=== PATIENT | female | born 1985 | race Caucasian/White ===

== ENCOUNTER → 2017-08-16 | Outpatient (CLI) | payer OTHER ==
--- NOTE | 2017-08-16 17:49 | MR ---
EXAMINATION TYPE: MR cervical spine wo con DATE OF EXAM: 08/16/2017 COMPARISON: NONE HISTORY: headaches, Neck pain, for a couple of months TECHNIQUE: Multiplanar, multisequence images of the cervical spine were acquired. C2-C3: No evidence for degenerative disc disease. No disc bulge/herniation or protrusion. No Canal stenosis. Foramina are patent bilaterally. C3-C4: There is moderate degenerative disc disease. There is broad-based central and right paracentra l disc bulging or small protrusion. Uncovertebral joint hypertrophy bilaterally greater on the right with mild bilateral foraminal encroachment but no canal stenosis. C4-C5: Moderate degenerative disc disease with posterior spondylosis and uncovertebral joint hypertro phy. Neural foramina remain patent. No focal herniation. C5-C6: Large central disc herniation resulting in anterior compression the spinal cord. Uncovertebral joint hypertrophy and facet arthropathy contribute to mild bilateral foraminal encroachment greater on the left. C6-C7: Degenerative disc disease with broad-based left paracentral disc herniation which abuts the an terior margin the spinal cord and results in mild left-sided foraminal encroachment. C7-T1: No evidence for degenerative disc disease. No disc bulge/herniation or protrusion. No Canal stenosis. Foramina are patent bilaterally. At T1-T2 there severe degenerative disc disease and sagittal disc bulging or protrusion to the left w hich is not included on the axial images. Cervical segments are intact. There is normal alignment. Cervical spinal cord is of normal signal. Craniovertebral junction relationships are within normal limits. IMPRESSION: 1. There is a central disc herniation C5-C6 with anterior spinal cord compression. 2. Multilevel degenerative disc disease and cervical spondylosis result in multilevel foraminal encro achment. 3. At C3-C4 there is broad-based central and right paracentral disc bulging or small protrusion. No C anal stenosis. Bilateral foraminal encroachment greater on the right. 4. At C6-C7 there is a broad-based central and left paracentral disc herniation which abuts the anter ior margin of the spinal cord without displacement. Significant compression of the thecal sac. 5. The T1-T2 level is only included on the sagittal images and demonstrates a sagittal disc bulge or protrusion to the left. Axial images do not include this region of interest. Consider follow-up [facility] spine MRI. A Yellow message has been communicated to Merissa Barahona MD via the [email or web address] [facility] system on 08/16/2017 5:44 PM, Message ID [id number].
== END | disposition home or self-care (01) ==
LOC: RADMRIMAIN 17:03
PROVIDERS: ATTEND Psychiatry & Neurology Neurology
DX: M50.21 Other cervical disc displacement, high cervical region (principal); M50.31 Other cervical disc degeneration, high cervical region; M47.812 Spondylosis without myelopathy or radiculopathy, cervical region; G95.20 Unspecified cord compression; Z88.0 Allergy status to penicillin; Z88.1 Allergy status to other antibiotic agents; Z88.5 Allergy status to narcotic agent; Z88.2 Allergy status to sulfonamides
CPT/HCPCS: 72141

== ENCOUNTER → 2017-08-25 | Outpatient (CLI) | payer OTHER ==
--- NOTE | 2017-08-25 14:07 | MR ---
EXAMINATION TYPE: MR thoracic spine wo con DATE OF EXAM: 08/25/2017 COMPARISON: NONE HISTORY: Thoracic DDD / Thoracic pain per order. TECHNIQUE: Multiplanar, multisequence imaging of thoracic spine is performed without contrast FINDINGS: Spinal cord shows normal course, caliber, and signal as it courses the thoracic spine. Vertebral bod y heights and alignment are satisfactory. Disc space heights are fairly well-maintained. There are m ultilevel posterior disc herniation seen mildly effacing anterior thecal sac at T4-T5, T6-T7, T7-T8 l evels on sagittal images. The bone marrow signal intensity is maintained. No significant spurring is seen. Review of the axial images shows confirms left paracentral disc protrusion effacing anterolateral the melissa sac on axial image 9 series 601 at T4-T5 level. Bilateral neural foramina are patent. Axial images at T5-T6 level shows small central disc protrusion mildly effacing anterior thecal sac o n axial image 6, bilateral neural foramina are patent. Axial images at T6-T7 level show slightly more prominent left paracentral disc protrusion effacing an terior thecal sac, up to ventral surface of spinal cord on axial image 2. Bilateral neural foramina r emain patent. Axial images at T7-T8 level show right paracentral disc protrusion effacing anterolateral thecal sac on axial image 16, bilateral neural foramina are patent. Spinal cord is slightly flattened at this le leonel along right anterior aspect. Remainder thoracic levels are felt within normal limits. Visualized thorax and upper abdomen show no suspicious abnormality. IMPRESSION: Multilevel disc herniations in the upper to midthoracic spine with most prominent disc he rniations noted T6-T7 and T7-T8 levels.
== END | disposition home or self-care (01) ==
LOC: RADMRIMAIN 12:12
PROVIDERS: ATTEND Psychiatry & Neurology Neurology
DX: M51.24 Other intervertebral disc displacement, thoracic region (principal); Z88.0 Allergy status to penicillin; Z88.5 Allergy status to narcotic agent; Z88.1 Allergy status to other antibiotic agents
CPT/HCPCS: 72146

== ENCOUNTER → 2019-02-27 | Outpatient (CLI) | payer BC, OTHER ==
[2019-02-27 15:18] LABS: HCT 37.7 % (34.0-46.0); HGB 12.7 gm/dL (11.4-16.0); MCH 30.8 pg (25.0-35.0); MCHC 33.6 g/dL (31.0-37.0); MCV 91.7 fL (80.0-100.0); Mean Platelet Volume 8.3; Platelet Count 231 k/uL (150-450); RBC 4.11 m/uL (3.80-5.40); RDW 12.8 % (11.5-15.5); WBC 5.5 k/uL (3.8-10.6)
[2019-02-27 15:24] LABS: African American GFR (CKD) >90 (>60 ml/min/1.73 sqM); Anion Gap 10 mmol/L; Blood Urea Nitrogen 13 mg/dL (7-17); Carbon Dioxide 22 mmol/L (22-30); Chloride 106 mmol/L (98-107); Glucose 90 mg/dL (74-99); Potassium 4.1 mmol/L (3.5-5.1); Sodium 138 mmol/L (137-145)
== END | disposition home or self-care (01) ==
LOC: LABPAT 14:19
PROVIDERS: ATTEND Internal Medicine Clinical Cardiac Electrophysiology
DX: Z01.812 Encounter for preprocedural laboratory examination (principal); I49.3 Ventricular premature depolarization; I49.9 Cardiac arrhythmia, unspecified
CPT/HCPCS: 36415; 80051; 82565; 82947; 84520; 85027

== ENCOUNTER 2019-03-14 10:07 | Inpatient (IN) | payer BC, OTHER ==
[~2019-03-14 10:07] MED LIST: LACTATED RINGERS 1,000 ML IV SCH
[2019-03-14] MEDS ORDERED: SODIUM CHLORIDE 0.9% 500 ML 500 ML IV ONE (10:27)
[2019-03-14] MEDS ORDERED: FAMOTIDINE 20 MG/2 ML VIAL ONE (11:03)
[2019-03-14] MEDS ORDERED: MIDAZOLAM (PF) 2 MG/2 ML VIAL IVP ONE (11:31)
[2019-03-14] MEDS ORDERED: LOPERAMIDE 2 MG CAP PO STA (12:24)
[2019-03-14] MEDS ORDERED: LIDOCAINE 1% INJ 10MG/ML (20 ML MDV) ONE ×3 (12:54→18:06)
[2019-03-14] MEDS ORDERED: HEPARIN SODIUM,PORCINE 10,000 UNIT/ML 1 ML VIAL ONE (13:01)
[2019-03-14] MEDS ORDERED: fentaNYL (PF) 50 MCG/ML 2 ML AMP ONE (13:01)
[2019-03-14] MEDS ORDERED: MIDAZOLAM 2 MG/2 ML VIAL ONE (13:01)
[2019-03-14] MEDS ORDERED: PROPOFOL 10 MG/ML 20 ML VIAL IV ONE (13:01)
[2019-03-14] MEDS ORDERED: SODIUM CHLORIDE 0.9% 1,000 ML IV ONE (13:01)
[2019-03-14] MEDS ORDERED: ISOPROTERENOL 250 MCG/1.25 ML SYR IV ONE (13:01)
--- NOTE | 2019-03-14 13:40 | P.HPCAR ---
History of Present Illness This is Nova Aguilera PA-C dictating H&P on this patient The patient was interviewed and examined by me as well as by Dr. Perdomo Case discussed with Dr. Perdomo and he agrees with the plan of care IMPRESSION / ASSESSMENT: Frequent symptomatic PVCs Hypothyroidism, most recent TSH within normal limits PLAN: Proceed with EP study and possible PVC ablation HPI Patient is a 33-year-old female with a past medical history of hypothyroidism who presents for evaluation and management of frequent PVCs. Patient has had increasing symptomatic PVCs. Most recent Holter monitor showed 16% PVC burden. Dr. Rangel her primary log sorter tried increasing her Cardizem from 180 mg to 240 mg daily but she was unable to tolerate this due to bradycardia. She continues to have symptoms of palpitations and chest discomfort. Patient seen and examined resting comfortably in bed. States she is anxious for her procedure. She has had mild diarrhea this morning which she attributes to her anxiety about the procedure. She is still getting palpitations although she feels they've been less frequent the last few days. Denies chest pain or shortness of breath currently. Denies orthopnea, PND, recent infections, fevers, chills. She is ready to proceed with the procedure. ROS: No fevers, chills or rigors, no cough, phlegm or expectoration, no nausea, vomiting, positive for diarrhea no hematuria, dysuria, no musculoskeletal complaints, no strokes or seizures, no skin lesions. EXAMINATION: Temperature 98.3F, pulse 82, respirations 16, blood pressure 135/81, oxygen saturation 97% on room air Patient seen and examined lying comfortably in bed, in no acute distress Lungs clear to auscultation bilaterally, no wheezing, rhonchi or crackles Heart is regular, normal S1 and S2, no murmurs appreciated No elevated JVD noted No lower extremity edema Abdomen soft REVIEW OF LABS, ECG & MEDICAL DATA Most recent echo showed EF 55-60% Most recent labs reviewed, WBC 5.5, hemoglobin 12.7, platelets 231, potassium 4.1, BUN 13, creatinine 0.8 to, magnesium 1.7, TSH 1.98 Physical Exam Vitals: Vital Signs Temp Pulse Resp BP Pulse Ox 03/14/19 11:29 98.3 F 82 16 135/81 97 Intake and Output 03/13/19 03/14/19 03/14/19 22:59 06:59 14:59 Intake Total 20 Balance 20 Intake: IV 20 Past Medical History Past Medical History: Asthma, Chest Pain / Angina, Musculoskeletal Disorder, Thyroid Disorder Additional Past Medical History / Comment(s): Palpitations, recurrent UTIs, hx gastric ulcers, anemia, DDD, chronic cervical and low back pain, hx head inj ury/concussion with sports, migraines, hypothyroid. Tachycardia ongoing for 6 years. History of Any Multi-Drug Resistant Organisms: None Reported Past Surgical History: Section, Cholecystectomy, Heart Catheterization, Orthopedic Surgery, Tonsillectomy, Tubal Ligation Additional Past Surgical History / Comment(s): 2013 cardiac cath-normal, 08/24/18 tubal ligation, L foot tendon/bunion surgery - later removal screws. Egd. Past Anesthesia/Blood Transfusion Reactions: No Reported Reaction, Motion Sickness Smoking Status: Former smoker - Past Family History Father History Unknown: Yes Mother Family Medical History: Hypertension Physical Examination Vital Signs Temp Pulse Resp BP Pulse Ox 03/14/19 11:29 98.3 F 82 16 135/81 97 Intake and Output 03/13/19 03/14/19 03/14/19 22:59 06:59 14:59 Intake Total 20 Balance 20 Intake: IV 20 Results Current Medications Generic Name Dose Route Start Last Admin Trade Name Freq PRN Reason Stop Dose Admin Lactated Ringer's 1,000 mls @ 20 mls/hr 03/14/19 07:00 Lactated Ringers IV .Q24H LUCILA Sodium Chloride 1,000 mls @ 20 mls/hr 03/14/19 07:00 Saline 0.9% IV .Q24H LUCILA Intake and Output 03/13/19 03/14/19 03/14/19 22:59 06:59 14:59 Intake Total 20 Balance 20 Intake: IV 20
[2019-03-14] MEDS: LIDOCAINE 1% INJ 10MG/ML (20 ML MDV) SQ ONE ×2 (13:57→15:22)
[2019-03-14] MEDS ORDERED: HEPARIN SOD,PORK IN 0.45% NACL 25,000 UNIT in 0.45% NACL 1 250ML.BAG IV ONE (15:20)
[2019-03-14] MEDS ORDERED: HEPARIN SODIUM (1,000 UNIT/ML) 1,000 UNIT in SODIUM CHLORIDE 0.9% 1,000 ML IRRIGATION ONE (15:27)
[2019-03-14] MEDS ORDERED: LACTATED RINGERS 1,000 ML IV ONE (16:30)
[2019-03-14] MEDS ORDERED: LOPERAMIDE 2 MG CAP PO PRN (17:56)
[2019-03-14] MEDS ORDERED: LIDOCAINE 1% INJ 10MG/ML (20 ML MDV) SQ ONE (17:58)
[2019-03-14] MEDS ORDERED: IOPAMIDOL-370 50ML BTL INJ ONE (18:07)
--- NOTE | 2019-03-14 18:20 | P.PRLE ---
RE: Candice Hall Dear José Luis Hall underwent a detailed EP study and we were able to induce PVCs only during the washout phase following short boluses of Isuprel. These PVCs are mapped to the aortic root. Both pace mapping and activation mapping was performed and they were mapped to the left coronary cusp, closest to the commissure between the right coronary cusp and the left coronary cusp. Successful ablation was performed. However it is quite likely she may still have a few PVCs since this is an epicardial location. I have asked her to continue aspirin for at least a month more. But stop Isosorbide mononitrate Thank you for entrusting me with the care of the patient Warm regards Sincerely El Perdomo
[2019-03-14] MEDS ORDERED: ACETAMINOPHEN IV (For NPO) 1,000 MG in EMPTY BAG 1 BAG IVPB ONE (18:30)
[2019-03-14] MEDS: SYMBICORT 160-4.5 MCG INHALER INHALATION SCH (19:22)
[2019-03-14] MEDS: SODIUM CHLORIDE 0.9% 1,000 ML IV SCH (19:38)
[2019-03-14 20:08] VITALS: BMI 34.6
[2019-03-14] MEDS: SERTRALINE 100 MG TAB PO SCH (20:24)
[2019-03-14] MEDS: DILTIAZEM CD 180 MG CAP.ER.24H PO SCH (20:24)
[2019-03-14] MEDS: clonazePAM 1 MG TAB PO SCH (20:24)
[2019-03-14] MEDS: LEVOTHYROXINE 125 MCG TAB PO SCH (20:24)
[2019-03-15] MEDS: SODIUM CHLORIDE 0.9% 1,000 ML IV SCH (05:08)
[2019-03-15 06:38] LABS: HCT 34.9 % (34.0-46.0); HGB 11.9 gm/dL (11.4-16.0); MCH 31.9 pg (25.0-35.0); MCHC 34.1 g/dL (31.0-37.0); MCV 93.4 fL (80.0-100.0); Mean Platelet Volume 8.5; Platelet Count 202 k/uL (150-450); RBC 3.73 m/uL (3.80-5.40); RDW 14.4 % (11.5-15.5); WBC 6.4 k/uL (3.8-10.6)
[2019-03-15] MEDS: clonazePAM 1 MG TAB PO SCH ×2 (07:47→21:18)
[2019-03-15] MEDS: SYMBICORT 160-4.5 MCG INHALER INHALATION SCH ×2 (07:53→19:49)
[2019-03-15] MEDS: buPROPion XL 300 MG TAB.ER.24H PO SCH (08:04)
--- NOTE | 2019-03-15 08:26 | P.DS ---
Providers Attending physician: El Perdomo Primary care physician: [facility] Course: Patient is doing well from a cardiac standpoint. She has no chest discomfort but she does complain of dizziness. The dizziness is in the right eye specifically when she looks downwards. This started a few hours back. She also has a bit of a headache all over the head. She does have a history of infrequent migraines. Yesterday she underwent ablation of frequent symptomatic PVCs. The PVC focus was in the left coronary cusp of the aortic root close to the commissure between the RCC and the LCC. Short RF ablations were performed with elimination of the clinical PVC, each lasting for up to 20 seconds for a maximum of 10-20 lopez She is fairly awake through the procedure. No acute complications noted An Angio-Seal was placed on the high femoral arterial access. Today she has mild discomfort in the right groin no hematoma Heart sounds are normal no murmurs or gallops no rub Rhythm is regular Twelve-lead ECG is completely normal this morning No JVD Pupils are normal Extraocular movements are complete bilaterally Normal pupil reaction to light equally bilaterally Cranial nerve examination is normal Cerebellar examination is normal She is not orthostatic Afebrile 98.1F pulse rate in the 70s, normal respirations, blood pressure 120/71 mmHg I stood her up and she felt a little dizzy all over and now is sitting in a chair comfortably eating breakfast Impression Frequent symptomatic PVCs, epicardial Earliest focus in the left coronary cusp close to the commissure between the RCC and LCC Successful ablation performed with termination of PVCs almost instantly She does have other PVCs but of different morphology Overnight she has not had any for the PVCs She has normal LV function on echo Plan Continue aspirin plan continue diltiazem MRI of the brain Reevaluation thereafter We did try to contact the covering neurologist the nurse was unable to get through I tried to call Dr. Rice's office as Dr. Hernández office. I left a message for Dr. Hernández If her MRI is normal of discharge home on current medications and arrange for an early follow-up next week Plan - Discharge Summary Discharge Rx Participant: Yes New Discharge Prescriptions: Discontinued RX: Isosorbide Mononitrate [Imdur] 15 mg PO DAILY No Action RX: Sertraline HCl [Zoloft] 200 mg PO HS RX: Levothyroxine Sodium [Synthroid] 125 mcg PO HS RX: clonazePAM [KlonoPIN] 1 mg PO BID RX: buPROPion XL [Wellbutrin XL] 300 mg PO DAILY RX: Budesonide-Formot 160-4.5 Mcg [Symbicort 160-4.5 Mcg Inhaler] 2 puff INHALATION RT-BID Diltiazem HCl [Diltiazem 24Hr ER] 180 mg PO HS Multivitamins, Thera [Multivitamin (formulary)] 1 tab PO DAILY Aspirin [Adult Low Dose Aspirin EC] 81 mg PO DAILY Loperamide HCl [Imodium A-D] 4 mg PO BID PRN PRN Reason: Diarrhea Discharge Medication List RX: Levothyroxine Sodium [Synthroid] 125 mcg PO HS 05/10/14 [History] RX: Sertraline HCl [Zoloft] 200 mg PO HS 05/10/14 [History] RX: clonazePAM [KlonoPIN] 1 mg PO BID 05/10/14 [History] Diltiazem HCl [Diltiazem 24Hr ER] 180 mg PO HS 09/19/18 [History] RX: Budesonide-Formot 160-4.5 Mcg [Symbicort 160-4.5 Mcg Inhaler] 2 puff INHALATION RT-BID 09/19/18 [History] RX: buPROPion XL [Wellbutrin XL] 300 mg PO DAILY 09/19/18 [History] Aspirin [Adult Low Dose Aspirin EC] 81 mg PO DAILY 03/09/19 [History] Multivitamins, Thera [Multivitamin (formulary)] 1 tab PO DAILY 03/09/19 [History] Loperamide HCl [Imodium A-D] 4 mg PO BID PRN 03/14/19 [History] Follow up Appointment(s)/Referral(s): Alvaro Rangel MD [STAFF PHYSICIAN] - 1 Week (Patient has an appointment for next Wednesday the , keep appointment) Activity/Diet/Wound Care/Special Instructions: Post EP study - Ablation instructions 1. Keep access sites dry for 2 days. 2. No heavy lifting or straining for 2 days. 3. Avoid bending the hips repeatedly for 2 days. 4. You may go up and down stairs slowly Call if the following is noted 1. Bleeding, increasing swelling or pain at the access sites. 2. Increasing chest discomfort, especially upon taking a deep breath. 3. Increasing shortness of breath, at rest or with exertion. 4. Undue cough / phlegm 5. Difficulty or pain while swallowing. 6. Pain or change in color in the extremities. 7. Fever, chills, rigors. 8. Increasing headache or neurologic symptoms. 9. Dizziness, fainting, palpitations Stop Imdur, continue all other cardiac medications
[2019-03-15] MEDS ORDERED: ASPIRIN 81 MG PO SCH (09:00)
--- NOTE | 2019-03-15 09:05 | PCN ---
PROCEDURE NOTE This is a 33-year-old female who has very frequent and symptomatic PVCs, which has a chest discomfort. She has normal coronary arteries, normal LV function. She was brought in for diagnostic EP study in and possible mapping of the PVCs. These PVCs on the surface appeared epicardial based upon the morphology. The patient is brought to the EP lab in a fasting state. Written informed consent was obtained prior to the procedure, she was not having any PVCs at the start of the study with left groins prepped and draped as per protocol. Venous sheaths were placed in the right and left femoral veins and a full diagnostic EP study was first performed. High right atrial catheter, HIS bundle catheter, and RV catheter were placed. Later, an 8.5- Kazakh long sheath was placed in the right femoral artery for mapping of the left ventricle. Sinus cycle length 925 milliseconds, IL interval 172 milliseconds, QRS 95 milliseconds and QT interval 414 milliseconds. AH interval 106 milliseconds, HV interval 48 milliseconds. The wound sinus node recovery times of 600, 500 and 40- milliseconds were 948, 926, and 937 milliseconds. Corresponding corrected sinus node recovery times within normal limits. AV node Wenckebach block 340 millisecond, VA Wenckebach block greater than 550 milliseconds. No VA conduction noted in the baseline state. No delta waves, slow pathway noted. This 360 milliseconds paced cycle length but without induction of any SVT or echo beats. Atrial ERP 600/260 milliseconds. Later on Isuprel with straight pacing as well as extra stimulation was performed and there was no and the SVT could not be induced. In the baseline state as well as with ventricular extra stimulation, PVCs could not be induced. However,high-dose Isuprel 4 minute followed by washout. Resulted in appearance of PVCs during the washout. The PVCs had a left bundle branch block like morphology, but with a delayed onset and initial isoelectric. They were upright in the inferior leads, upright in the high lateral leads and the delta wave-like configuration with an MDI of almost 64%. Mapping of the left ventricle was performed. The intracardiac echocardiography was performed. At baseline there was no pericardial effusion. LV function was normal. Aortic root was mapped. The LVOT was mapped. The mitral anulus was tagged. Pace mapping was first performed and the best pace map was obtained in the anterior LVOT chest pain on the right coronary cusp slightly to the right of the commissure between the right and the left cast. However, that is a very best pace map that could be obtained. Thereafter, PVCs were induced during the washout period of Isuprel. At this time first, the aortic root in the right coronary cusp was mapped, then the commissure between the RCC and the LCC was mapped and then the left coronary cusp was mapped. The earliest activation was noted in the left coronary cusp slightly to the left side of the commissioner. Excellent early bipolar signals were noted as well as early unipolar signals with a sharp downward initial component. The local electrograms during PVCs were excellent after detailed mapping and localization of the PVC focus. RF ablation was performed with almost immediate termination and resolution of PVCs. However, with Isuprel followed by HO Isuprel. The patient was tested on Isuprel for brief periods and then during recovery PVCs she will have PVCs but upwards of a different morphology. RF ablation was applied in the left coronary cusp well away from the left main, which was also tacked along the commissure as well as slightly above it and a power between 10-20 lopez was used for duration of 15-20 seconds each with a rapid elimination of the focus. The patient did have PVCs come back during recovery, but of a very different morphology. The PVCs that the patient was left with had a delayed left bundle branch block morphology almost a flat QRS, isolated QRS in lead V1 and an RS pattern in lead 1, which is very different from the clinical PVCs. This PVC was not mapped. Once again, the patient on Isuprel was tested for induction of having any slow AVNRT but we could not induce AVNRT at all. All catheters were removed at the end of the procedure. Angio-Seal was applied to the right femoral artery. The films were reviewed with of Vascular Surgery. The patient tolerated the procedure well without any acute complications. PLAN: Stop isosorbide, aspirin for 1 month only and then stop and discharge home tomorrow by 5 pm and follow up in the office in a week's time. RESULT: Successful ablation of an epicardial PVC focus in the left coronary cusp away from the left main with successful ablation. MMODL / IJN: [id number] /
[2019-03-15] MEDS: ACETAMINOPHEN TAB 325 MG TAB PO PRN ×2 (12:05→21:23)
--- NOTE | 2019-03-15 12:37 | MR ---
MR brain without contrast HISTORY: Dizziness and headache Multiplanar multisequence imaging through the brain No comparisons There is a small focus of restricted diffusion in the right frontal galo-white junction on axial imag e 23 and also in the left frontal galo-white junction. There is no hemorrhage or hydrocephalus. The c orpus callosum, pituitary, cervical medullary junction, cerebellopontine angles are within normal nevarez its. There are normal vascular flow voids present. Orbits show symmetric appearance. Paranasal sinuse s are remarkable for mild mucosal disease in the maxillary sinuses, ethmoid air cells. Brain signal i s otherwise within normal limits. No inflammatory change evident at the mastoids. IMPRESSION: Small cortical infarcts are suspected suspicious for embolic phenomenon. Mild sinus disea se.
[2019-03-15] MEDS ORDERED: ASPIRIN 81 MG PO STA (18:05)
--- NOTE | 2019-03-15 19:00 | CT ---
EXAMINATION TYPE: CT angio head DATE OF EXAM: 03/15/2019 6:53 PM COMPARISON: None HISTORY: Right eye blurriness and dizziness post cardiac ablation. CT DLP: 895.3 mGycm Automated exposure control for dose reduction was used. TECHNIQUE: Performed with IV Contrast, patient injected with 100ml mL of Isovue 370. . FINDINGS: Multiple axial sections were obtained of the brain with intravenous contrast. There are 3-D post proc essed images. There is arterial flow in the vertebrobasilar artery system. There is arterial flow in the anterior m iddle and posterior cerebral arteries. There is no mass effect. There is normal contrast opacificatio n of the venous sinuses. I see no evidence of aneurysm or neovascularity. There is narrowing of the p roximal left anterior cerebral artery. I do not see hemodynamic stenosis. Right posterior cerebral ar jackie appears to fill mostly through the right posterior communicating artery. IMPRESSION: NEGATIVE CT ANGIOGRAM OF THE BRAIN.
[2019-03-15] MEDS ORDERED: ATORVASTATIN 20 MG TAB PO SCH (21:00)
[2019-03-15] MEDS: DILTIAZEM CD 180 MG CAP.ER.24H PO SCH (21:19)
[2019-03-15] MEDS: LEVOTHYROXINE 125 MCG TAB PO SCH (21:19)
[2019-03-15] MEDS: SERTRALINE 100 MG TAB PO SCH (21:19)
[2019-03-16 05:10] VITALS: RESP 17
[2019-03-16] MEDS: SODIUM CHLORIDE 0.9% 1,000 ML IV SCH (06:42)
[2019-03-16] MEDS: SYMBICORT 160-4.5 MCG INHALER INHALATION SCH (07:40)
[2019-03-16 08:04] VITALS: PULSE 77
[2019-03-16] MEDS ORDERED: ASPIRIN 81 MG PO SCH (09:00)
[2019-03-16] MEDS: clonazePAM 1 MG TAB PO SCH (10:01)
[2019-03-16] MEDS: buPROPion XL 300 MG TAB.ER.24H PO SCH (10:01)
[2019-03-16] MEDS: ACETAMINOPHEN TAB 325 MG TAB PO PRN (10:02)
--- NOTE | 2019-03-16 12:17 | ECHOF ---
Referral Reason:post ablation, dizziness MEASUREMENTS -------- HEIGHT: 172.7 cm WEIGHT: 104.3 kg BP: 112/66 RVIDd: 2.8 cm (< 3.3) IVSd: 1.0 cm (0.6 - 1.1) LVIDd: 4.2 cm (3.9 - 5.3) LVPWd: 1.2 cm (0.6 - 1.1) IVSs: 1.4 cm LVIDs: 2.8 cm LVPWs: 1.9 cm LAESV Index (A-L): 17.49 ml/m Ao Diam: 2.9 cm (2.0 - 3.7) AV Cusp: 1.8 cm (1.5 - 2.6) LA Diam: 2.5 cm (2.7 - 3.8) EPSS: 0.7 cm MV E Peter: 0.79 m/s MV DecT: 123 ms MV A Peter: 0.73 m/s MV E/A Ratio: 1.07 RAP: 5.00 mmHg RVSP: 27.54 mmHg MV EF SLOPE: 115.64 mm/s (70 - 150) MV EXCURSION: 1.66 cm (> 18.000) FINDINGS -------- Sinus rhythm. The left ventricular size is normal. Left ventricular wall thickness is normal. There is normal g lobal left ventricular contractility. Overall left ventricular systolic function is normal with, an EF between 55 - 60 %. The diastolic filling pattern is normal for the age of the patient. The right ventricle is normal in size. Left atrium is normal size by volume. The right atrium is normal in size and function. Interatrial and interventricular septum intact. The aortic valve is trileaflet and appears structurally normal. Trace to mild aortic regurgitation. There is no evidence of aortic stenosis. The mitral valve is normal. There is trace mitral regurgitation. Mild tricuspid regurgitation present. There is no evidence of pulmonary hypertension. The right v entricular systolic pressure, as measured by Doppler, is 27.54mmHg. Trace/mild (physiologic) pulmonic regurgitation. The aortic root size is normal. IVC not well visualized There is no pericardial effusion. CONCLUSIONS -------- 1. Sinus rhythm. 2. The left ventricular size is normal. 3. Left ventricular wall thickness is normal. 4. There is normal global left ventricular contractility. 5. Overall left ventricular systolic function is normal with, an EF between 55 - 60 %. 6. The diastolic filling pattern is normal for the age of the patient. 7. The right ventricle is normal in size. 8. Left atrium is normal size by volume. 9. The right atrium is normal in size and function. 10. Interatrial and interventricular septum intact. 11. The aortic valve is trileaflet and appears structurally normal. 12. Trace to mild aortic regurgitation. 13. There is no evidence of aortic stenosis. 14. The mitral valve is normal. 15. There is trace mitral regurgitation. 16. Mild tricuspid regurgitation present. 17. There is no evidence of pulmonary hypertension. 18. The right ventricular systolic pressure, as measured by Doppler, is 27.54mmHg. 19. Trace/mild (physiologic) pulmonic regurgitation. 20. The aortic root size is normal. 21. IVC not well visualized 22. There is no pericardial effusion. DENTAL LABORATORY TECHNICIAN: Basia Jimenez RDCS
[2019-03-16 12:18] VITALS: BP 121/71; TEMP 97.8
[2019-03-16 12:28] LABS: ALT 41 U/L (9-52); AST 39 U/L (14-36); African American GFR (CKD) >90 (>60 ml/min/1.73 sqM); Albumin 4.5 g/dL (3.5-5.0); Alkaline Phosphatase 74 U/L (38-126); Anion Gap 9 mmol/L; Blood Urea Nitrogen 12 mg/dL (7-17); Calcium 9.9 mg/dL (8.4-10.2); Carbon Dioxide 24 mmol/L (22-30); Chloride 106 mmol/L (98-107); Cholesterol 178 mg/dL (<200); Glucose 102 mg/dL (74-99); HDL Cholesterol 49 mg/dL (40-60); LDL Cholesterol,Calculated 92 mg/dL (0-99); Potassium 4.7 mmol/L (3.5-5.1); Sodium 139 mmol/L (137-145); Total Bilirubin 0.6 mg/dL (0.2-1.3); Total Protein 7.6 g/dL (6.3-8.2); Triglycerides 185 mg/dL (<150)
--- NOTE | 2019-03-16 14:35 | US ---
EXAMINATION TYPE: US carotid duplex BILAT DATE OF EXAM: 03/16/2019 COMPARISON: NONE CLINICAL HISTORY: possible stroke on MRI. EXAM MEASUREMENTS: RIGHT: Peak Systolic Velocity (PSV) cm/sec ----- Right CCA: 98.7 ----- Right ICA: 96.9 ----- Right ECA: 71.1 ICA/CCA ratio: 1.0 RIGHT: End Diastole cm/sec ----- Right CCA: 26.0 ----- Right ICA: 37.4 ----- Right ECA: 10.2 LEFT: Peak Systolic Velocity (PSV) cm/sec ----- Left CCA: 101.6 ----- Left ICA: 100.2 ----- Left ECA: 74.6 ICA/CCA ratio: 1.0 LEFT: End Diastole cm/sec ----- Left CCA: 30.4 ----- Left ICA: 33.3 ----- Left ECA: 8.7 VERTEBRALS (direction of flow): Right Vertebral: Antegrade Left Vertebral: Antegrade Rhythm: Normal Grayscale, color Doppler, spectral Doppler imaging performed of the carotid arteries. Waveform analys is does not show significant stenosis by Doppler criteria. No significant stenosis seen. No elevated velocities. No plaque seen. IMPRESSION: No hemodynamic significant stenosis of the proximal internal carotid arteries bilaterall y by Doppler criteria, an indirect measurement of carotid stenosis
[2019-03-16 14:55] LABS: T4, Free (Free Thyroxine) 0.97 ng/dL (0.78-2.19)
--- NOTE | 2019-03-16 16:59 | P.CNNES ---
History of Present Illness Consult date: 03/16/19 Reason for Consult: Stroke on MRI Chief complaint: Vision changes History of Present Illness: REFERRING PHYSICIAN: Dr. Perdomo HISTORY OF PRESENT ILLNESS: Thank you for allowing me to evaluate this obdulia Hall. Mrs. Hall is a 33-year-old woman with past medical history of asthma, angina, gastric ulcers, degenerative disc disease, chronic cervical and low back pain, c oncussion with sports, migraines, hypothyroidism, tachycardia 6 years, who recently underwent VT ablation for her chronic tachycardia, consulting neurology for acute onset vision deficit. Patient states that after her procedure on 03/14/2019 around 6 PM, patient came back to her room and she noticed that her vision was a little blurred. She thought it was from anesthesia, though she wanted to just sleep it off, but when she woke up around 2 or 3 in the morning, she continued to have the blurred vision, so she notified the nurse. When she woke up in the morning, she again had blurry vision, so she clonus again at which point the admitting doctor was contacted and MRI brain was done. MRI brain showed 2 petechial lesions in the left and right parietal lobes on diffusion, but with no correlate on ADC and FLAIR. Patient states that when she looks down she sees double [id number] by when she is looking straight to the right to the left or looking up, there is no deficit. There is no double vision when she closes one of the eyes. Patient has not noticed any change in her double vision since 2 days ago. Patient denies ever having similar symptoms. Denies any pain with eye movement. No recent sickness, fever, headache, nausea, vomiting, diarrhea, constipation, abdominal pain, urinary symptoms. PAST MEDICAL HISTORY: Asthma, angina, gastric ulcers, degenerative disc disease, chronic cervical and low back pain, concussion with sports, migraines, hypothyroidism, tachycardia 6 years PAST SURGICAL HISTORY: , cholecystectomy, heart catheterization, tonsillectomy, tubal ligation, left tendon/bunion surgery, VT ablation recently HOME MEDICATIONS: Sertraline, levothyroxine, Imdur, clonazepam, bupropion, Symbicort, diltiazem, aspirin, loperamide ALLERGIES: Sulfamethoxazole, trimethoprim, clindamycin, morphine, penicillin, cariprazine SOCIAL HISTORY: Former smoker. FAMILY HISTORY: Mother with hypertension REVIEW OF SYSTEMS: The 14 systems are reviewed and no additional points are identified compared to the review of systems documented history and physical PHYSICAL EXAMINATION: VITAL SIGNS: T 98.5 HR 70 RR 17 pressure 125/77 O2 saturation 95% on room air GEN.: NAD, pleasant and cooperative HEENT: NCAT, sclera without icterus NECK: Supple SKIN AND EXTREMITIES: Warm to touch, no edema NEURO: MENTAL STATUS: Patient alert and oriented to self, place, time. Able to name the current president. Speech fluent, able to name and repeat, following all commands readily. No right and left disorientation, extinction to double simultaneous stimulation, finger agnosia, neglect. CRANIAL NERVES II THROUGH XII: II: Pupils are equal and reactive to light symmetrically. No afferent pupillary defect. Visual davalos are intact. III, IV, : No ptosis even with sustained upward gaze. Extraocular movements full. No nystagmus. Patient seeing double when she looks down, down the right, and on the left V: Facial sensation intact from V1-3. VII. No clear facial asy mmetry. VIII: Hearing intact to finger rub bilaterally. IX, X: Symmetric palate elevation. XI: Shoulder shrug intact. XII: Tongue midline without fasciculation or atrophy. MOTOR: Normal bulk/tone. No pronator drift or tremor. Strength is 5/5 throughout all 4 extremities. SENSORY: Intact to light touch, temperature, pinprick in all 4 extremities. Romberg is negative. REFLEXES: 2+ throughout. Toes are downgoing. No clonus. Ashley's is absent COORDINATION: Finger to nose and heel to paredes intact. No dysmetria. Rapid alternating movements with good speed and accuracy. GAIT: Narrow-based and stable. Able to toe/heel/tandem walk DIAGNOSTIC TESTING: LABORATORY: WBC 6.4 hemoglobin 11.9 platelet 202 Sodium 139 potassium 4.7 chloride 6 bicarb 24 BUN 12 creatinine 0.82 glucose 102 AST 39 ALT 41 total cholesterol 178 LDL 92 HDL 49 triglycerides 185 TSH 5.2703 T4 0.97 IMAGING: MRI brain without contrast 03/15/2019: Small cortical infarcts are suspect is suspicious for embolic phenomenon. Mild sinus disease. CTA head with contrast 03/15/2019: Negative CT angiogram of brain Carotid Doppler bilateral neck 03/16/2019: No hemodynamically significant stenosis of the proximal internal carotid arteries bilaterally by Doppler criteria, and indirect measurement of carotid stenosis. ASSESSMENT: Mrs. Hall is a 33-year-old woman with past medical history of asthma, angina, gastric ulcers, degenerative disc disease, chronic cervical and low back pain, concussion with sports, migraines, hypothyroidism, tachycardia 6 years, who recently underwent VT ablation for her chronic tachycardia, consulting neurology for acute onset vision deficit. Patient reporting double vision when looking down, looking down the right, and looking down and left. The muscles involved here are inferior rectus, superior oblique, which will be part of cranial nerve III and cranial nerves IV. Patient with no obvious deficits with extraocular muscle movements or pain with eye movement. No fatiguing of muscles. Patient also denies any headache. Patient with no diabetes. Patient has no other focal neuro deficits. CTA head unremarkable. Carotid Doppler bilateral neck unremarkable. Unclear etiology of patient's double vision RECOMMENDATIONS: 1. Repeat MRI brain without contrast in 2-3 weeks to compare as initial MRI brain nonspecific. 2. Ophthalmology follow-up as outpatient. 3. Neurology follow-up as outpatient after repeat MRI brain obtained. 4. At this time, will continue aspirin 81 mg. Start atorvastatin 80 mg daily 5. Occupation therapy request this patient with double vision when looking down Past Medical History Past Medical History: Asthma, Chest Pain / Angina, Musculoskeletal Disorder, Thyroid Disorder Additional Past Medical History / Comment(s): Palpitations, recurrent UTIs, hx gastric ulcers, anemia, DDD, chronic cervical and low back pain, hx head injury/concussion with sports, migraines, hypothyroid. Tachycardia ongoing for 6 years. History of Any Multi-Drug Resistant Organisms: None Reported Past Surgical History: Section, Cholecystectomy, Heart Catheterization, Orthopedic Surgery, Tonsillectomy, Tubal Ligation Additional Past Surgical History / Comment(s): 2013 cardiac cath-normal, 08/24/18 tubal ligation, L foot tendon/bunion surgery - later removal screws. Egd. Past Anesthesia/Blood Transfusion Reactions: No Reported Reaction Past Psychological History: Anxiety, Depression Additional Psychological History / Comment(s): Pt resides with 3 children and her significant other. she is independent. Smoking Status: Former smoker Past Alcohol Use History: Occasional Additional Past Alcohol Use History / Comment(s): Pt started smoking in 2000, quit in 2005. Past Drug Use History: None Reported - Past Family History Father History Unknown: Yes Mother Family Medical History: Hypertension Medications and Allergies Home Medications Medication Instructions Recorded Confirmed Type Levothyroxine Sodium [Synthroid] 125 mcg PO HS 05/10/14 03/15/19 History Sertraline HCl [Zoloft] 200 mg PO HS 05/10/14 03/15/19 History clonazePAM [KlonoPIN] 1 mg PO BID 05/10/14 03/15/19 History Budesonide-Formot 160-4.5 Mcg 2 puff INHALATION RT-BID 09/19/18 03/15/19 History [Symbicort 160-4.5 Mcg Inhaler] Diltiazem HCl [Diltiazem 24Hr ER] 180 mg PO HS 09/19/18 03/15/19 History buPROPion XL [Wellbutrin XL] 300 mg PO DAILY 09/19/18 03/15/19 History Multivitamins, Thera [Multivitamin 1 tab PO DAILY 03/09/19 03/15/19 History (formulary)] Loperamide HCl [Imodium A-D] 4 mg PO BID PRN 03/14/19 03/15/19 History Aspirin EC [Ecotrin Low Dose] 162 mg PO DAILY #30 tablet. 03/16/19 Rx Allergies Allergy/AdvReac Type Severity Reaction Status Date / Time sulfamethoxazole Allergy Severe joint pain Verified 03/09/19 17:47 [From Bactrim] trimethoprim [From Bactrim] Allergy Severe joint pain Verified 03/09/19 17:47 clindamycin Allergy throat Verified 03/09/19 17:47 swells morphine Allergy severe arm Verified 03/09/19 17:47 swelling and reddness Penicillins Allergy throat Verified 03/09/19 17:47 swelling cariprazine [From Vraylar] AdvReac Chest Pain Verified 03/09/19 18:04 Physical Examination - Vital Signs Vital Signs: Vital Signs Temp Pulse Pulse Resp BP BP BP 03/16/19 08:02 98.5 F 77 17 125/77 03/16/19 04:00 98.4 F 70 17 112/66 03/16/19 00:00 98.3 F 66 17 96/62 03/15/19 20:10 98.3 F 66 17 120/74 03/15/19 16:00 98.2 F 68 18 107/74 03/15/19 12:00 96.9 F L 18 114/75 Pulse Ox 03/16/19 08:02 95 03/16/19 04:00 96 03/16/19 00:00 96 03/15/19 20:10 97 03/15/19 16:00 97 03/15/19 12:00 96 Intake and Output 03/15/19 03/16/19 03/16/19 22:59 06:59 14:59 Intake Total 600 490 118 Balance 600 490 118 Intake: IV 10 0.9 10 Oral 600 480 118 Other: Voiding Method Toilet Toilet # Voids 1 4 Weight 104.5 kg Results - Laboratory Findings CBC and BMP: 03/15/19 06:09 03/16/19 11:49 Abnormal Lab Findings: Abnormal Labs 03/15/19 06:09 RBC 3.73 L
--- NOTE | 2019-03-16 19:18 | P.DS ---
Providers Date of admission: 03/15/19 16:28 Attending physician: El Perdomo Consults: 03/15/19 13:11 Consult Physician Urgent Consulting Provider: Lilibeth Hernandez Consult Reason/Comments: abn MRI, blurred vision, dizziness Do you want consulting provider notified?: Already Contacted Primary care physician: [facility] Course: Patient was reevaluated today on 2 occasions This morning she been ambulating in the hallways. She does not have dizziness upon standing up walking around. Her headache is gone She did have blurring of vision/diplopia only upon looking downwards, with a downward gaze [facility] and [facility] AST 39 triglycerides 185 TSH 5.27, free T4 0.[address] angiography of the brain did not reveal any occlusive disease 2-D echo repeat was unremarkable She was then seen by neurology Dr. Hernandez I discussed the case with Dr. Hernandez in detail After Mary reviewed the MRI report and the scans with radiology There was uncertainty regarding whether the 2 lesions were artifactual or real and a follow-up MRI was recommended in 2-3 weeks along with the neurology follow-up The stool lesions do not correlate with her signs. She termed the MRI of the brain as nonspecific Dr. Hernandez recommended occupational therapy and neurology follow-up and ophthalmology evaluation On examination she is afebrile 97.8F pulse rate in the 60s and 70s. No PVCs no darius no nonsustained ventricular tachycardia noted on telemetry Blood pressure 112/60 6V was mercury Patient is walking around in the hallways without any problems. She has no dizziness when she stands up or walks around which is an improvement since yesterday Today she has no headaches Head and neck examination is normal cranial nerve examination is normal Cerebellar examination is normal Romberg sign is negative Patient can perform the tandem walk without any problems Abdomen is soft nontender Groins a mildly tender but there is no hematoma no swelling Normal heart sounds are regular no murmurs no gallops no rub No JVD no lower extremity edema Pupils are normal Impression Successful ablation of the symptomatic PVC focus in the left coronary cusp with minimal ablations at low-power and short duration of less than 20 seconds No PVCs noted in the last 48 hours Blurring of vision and diplopia with downward gaze in the right eye MRI changes reported by radiology do not correlate with her neurologic symptoms MRI deemed nonspecific per neurology, Dr. Hernandez CT angiography head did not reveal any occlusive disease 2-D echo repeat normal Carotid studies normal Suggest Patient may go home today from a cardiac standpoint and will see me/Dr. Rangel within one week She will continue aspirin 162 mg by mouth daily as well as her other cardiac medications Occupational therapy to see patient today prior to discharge I will arrange for ophthalmology follow-up I will arrange for her neurology follow-up with Dr. Hernández. She only has an appointment within a week with Dr. Seven Rodriguez Patient Condition at Discharge: Stable Plan - Discharge Summary Discharge Rx Participant: Yes New Discharge Prescriptions: New Aspirin EC [Ecotrin Low Dose] 162 mg PO DAILY #30 tablet.dr Discontinued Isosorbide Mononitrate [Imdur] 15 mg PO DAILY Aspirin [Adult Low Dose Aspirin EC] 81 mg PO DAILY No Action Sertraline HCl [Zoloft] 200 mg PO HS Levothyroxine Sodium [Synthroid] 125 mcg PO HS clonazePAM [KlonoPIN] 1 mg PO BID buPROPion XL [Wellbutrin XL] 300 mg PO DAILY Budesonide-Formot 160-4.5 Mcg [Symbicort 160-4.5 Mcg Inhaler] 2 puff INHALATION RT-BID Diltiazem HCl [Diltiazem 24Hr ER] 180 mg PO HS Multivitamins, Thera [Multivitamin (formulary)] 1 tab PO DAILY Loperamide HCl [Imodium A-D] 4 mg PO BID PRN PRN Reason: Diarrhea Discharge Medication List Levothyroxine Sodium [Synthroid] 125 mcg PO HS 05/10/14 [History] Sertraline HCl [Zoloft] 200 mg PO HS 05/10/14 [History] clonazePAM [KlonoPIN] 1 mg PO BID 05/10/14 [History] Budesonide-Formot 160-4.5 Mcg [Symbicort 160-4.5 Mcg Inhaler] 2 puff INHALATION RT-BID 09/19/18 [History] Diltiazem HCl [Diltiazem 24Hr ER] 180 mg PO HS 09/19/18 [History] buPROPion XL [Wellbutrin XL] 300 mg PO DAILY 09/19/18 [History] Multivitamins, Thera [Multivitamin (formulary)] 1 tab PO DAILY 03/09/19 [History] Loperamide HCl [Imodium A-D] 4 mg PO BID PRN 03/14/19 [History] Aspirin EC [Ecotrin Low Dose] 162 mg PO DAILY #30 tablet. 03/16/19 [Rx] Follow up Appointment(s)/Referral(s): El Perdomo MD [STAFF PHYSICIAN] - 03/24/19 9:30 am () Kaitlynn Rodriguez MD [STAFF PHYSICIAN] - 03/24/19 2:20 pm (pt to follow up with Dr. Jenifer Hernández regarding follow up MRI for headache, dizziness, right eye blurry post cardiac ablation with Dr. Perdomo. Nurse spoke to [employer] front desk receptionist at the office.) Patient Instructions/Handouts: Cardiac Ablation (DC), Stroke (DC) Activity/Diet/Wound Care/Special Instructions: Post EP study - Ablation instructions 1. Keep access sites dry for 2 days. 2. No heavy lifting or straining for 2 days. 3. Avoid bending the hips repeatedly for 2 days. 4. You may go up and down stairs slowly Call if the following is noted 1. Bleeding, increasing swelling or pain at the access sites. 2. Increasing chest discomfort, especially upon taking a deep breath. 3. Increasing shortness of breath, at rest or with exertion. 4. Undue cough / phlegm 5. Difficulty or pain while swallowing. 6. Pain or change in color in the extremities. 7. Fever, chills, rigors. 8. Increasing headache or neurologic symptoms. 9. Dizziness, fainting, palpitations Stop Imdur, continue all other cardiac medications Continue aspirin See Dr. Perdomo this Wednesday 1.00pm Discharge Disposition: HOME SELF-CARE
[2019-03-16 22:16] LABS: Hemoglobin A1C 5.2 % (4.0-6.0)
[2019-03-17] MEDS ORDERED: ATORVASTATIN 80 MG TAB PO SCH (09:00)
== END 2019-03-16 16:45 | disposition home or self-care (01) | DRG 983 ==
LOC: CATHEP 10:07 → 1SOBS 18:05 → CATHEP 03-15 15:48 → 1SOBS 03-15 16:28 → 3SCARD 03-15 19:11
PROVIDERS: ADMIT Internal Medicine Clinical Cardiac Electrophysiology; ATTEND Internal Medicine Clinical Cardiac Electrophysiology
PROC: 4A023FZ Measurement of Cardiac Rhythm, Percutaneous Approach (ICD-10-PCS; 2019-03-14)
PROC: 4A0234Z Measurement of Cardiac Electrical Activity, Percutaneous Approach (ICD-10-PCS; 2019-03-14)
PROC: 02583ZZ Destruction of Conduction Mechanism, Percutaneous Approach (ICD-10-PCS; principal; 2019-03-14 13:01)
PROC: 02K83ZZ Map Conduction Mechanism, Percutaneous Approach (ICD-10-PCS; 2019-03-14 13:01)
DX: H53.2 Diplopia (principal); I49.3 Ventricular premature depolarization; I44.7 Left bundle-branch block, unspecified; E03.9 Hypothyroidism, unspecified; H54.7 Unspecified visual loss; I44.1 Atrioventricular block, second degree; J45.909 Unspecified asthma, uncomplicated; Z79.51 Long term (current) use of inhaled steroids; Z79.82 Long term (current) use of aspirin; Z79.890 Hormone replacement therapy; Z79.899 Other long term (current) drug therapy; Z82.49 Family history of ischemic heart disease and other diseases of the circulatory system; Z87.11 Personal history of peptic ulcer disease; Z87.440 Personal history of urinary (tract) infections; Z87.891 Personal history of nicotine dependence; M50.30 Other cervical disc degeneration, unspecified cervical region; Z88.5 Allergy status to narcotic agent; Z88.0 Allergy status to penicillin; Z88.2 Allergy status to sulfonamides; Z88.8 Allergy status to other drugs, medicaments and biological substances; R51 Headache
CPT/HCPCS: 70496; 70551; 80053; 80061; 81025; 83036; 84439; 84443; 85027; 85347; 93306; 93623; 93654; 93880; 94640

== ENCOUNTER → 2019-06-02 | Outpatient (CLI) | payer OTHER ==
--- NOTE | 2019-06-02 16:41 | MR ---
EXAMINATION TYPE: MR angio head wo con DATE OF EXAM: 06/02/2019 COMPARISON: CTA head January 12, 2019 HISTORY: Bilateral headaches, personal hx of TIA TECHNIQUE: Time of flight images focusing on the [place] were performed without contrast.. 2-D and 3-D postprocessing imaging is performed an independent workstation and reviewed. FINDINGS: There is a codominant vertebrobasilar system. Vertebral arteries are patent to basilar junc tion. There is hypoplastic left posterior commuting artery. There is patent right posterior communica ting artery. There is no significant focal stenosis or aneurysmal change identified. Images of the anterior circulation show patent anterior communicating artery. There is no significant focal stenosis or aneurysmal change seen. IMPRESSION: No aneurysmal change at the level of [place] of [place]. No significant change from CTA.
--- NOTE | 2019-06-02 16:43 | MR ---
EXAMINATION TYPE: MR brain wo con DATE OF EXAM: 06/02/2019 COMPARISON: Prior MRI brain March 15, 2019 HISTORY: Bilateral headaches, personal hx of TIA TECHNIQUE: Multiplanar, multisequence imaging of the brain and brainstem is performed without IV cont rast. FINDINGS: Diffusion weighted images demonstrate no evidence of a recent infarct or other diffusion abnormality. There is no extraaxial fluid collection or significant white matter signal abnormality. The ventricu lar system and cisternal spaces are normal in size and appearance. The brain volume is age appropria te. Midline structures demonstrate normal morphology. The craniocervical junction appears within normal limits. Normal vascular flow voids are present. Some distortion at level of globes. Visualized sinuse s remain clear. IMPRESSION: Unremarkable study currently. No acute or significant infarcts identified currently.
== END ==
LOC: RADMRIMAIN 13:01
PROVIDERS: ATTEND Psychiatry & Neurology Neurology
DX: R51 Headache (principal); Z86.73 Personal history of transient ischemic attack (TIA), and cerebral infarction without residual deficits
CPT/HCPCS: 70544; 70551

== ENCOUNTER → 2019-08-31 | Outpatient (CLI) | payer OTHER ==
[2019-08-31 14:25] VITALS: BP 143/91; PULSE 82; RESP 18
--- NOTE | 2019-09-01 19:51 | P.PAINCN ---
History of Present Illness - Reason for Consult Consult date: 08/31/19 - History of Present Illness This initial consultation visit for this 33 years old female, was referred to [facility] pain clinic for evaluation regarding occipital nerve block, patient had a chronic history of severe neck pain and headaches that interfere with the quality of life, started several years ago, she denies any initiating event, patient reported that the headache intensity fluctuates, and starting from the base of the skull to the top of the head, patient tried different medication for treatment of headache without any success, intensity of the headache interfere with her ability to do activities of daily living, she denies any motor or sensory deficits she denies any fever or night sweats, patient had episodes of blurred vision happened last year after she had cardiac ablation, but all the diagnostic study was negative at that time. Past Medical History Past Medical History: Asthma, Chest Pain / Angina, CVA/TIA, Thyroid Disorder Additional Past Medical History / Comment(s): 2 TIA'S R/T ABLATION 04/2019. Palpitations, recurrent UTIs, gastric ulcers, anemia, DDD, chronic cervical and low back pain, head injury/concussion with sports, migraines, History of Any Multi-Drug Resistant Organisms: None Reported Past Surgical History: Cardiac Ablation, Section, Cholecystectomy, Heart Catheterization, Orthopedic Surgery, Tonsillectomy, Tubal Ligation Additional Past Surgical History / Comment(s): 2013 cardiac cath-normal, 08/24/18 tubal ligation, L foot tendon/bunion surgery. Egd. EPS 03/2019 WITH ABLATION Past Anesthesia/Blood Transfusion Reactions: No Reported Reaction Smoking Status: Former smoker - Past Family History Father History Unknown: Yes Mother Family Medical History: Hypertension Medications and Allergies Home Medications Medication Instructions Recorded Confirmed Type Sertraline HCl [Zoloft] 200 mg PO HS 05/10/14 08/31/19 History clonazePAM [KlonoPIN] 1 mg PO BID 05/10/14 08/31/19 History Budesonide-Formot 160-4.5 Mcg 2 puff INHALATION RT-BID 09/19/18 08/31/19 History [Symbicort 160-4.5 Mcg Inhaler] Diltiazem HCl [Diltiazem 24Hr ER] 180 mg PO HS 09/19/18 08/31/19 History buPROPion XL [Wellbutrin XL] 300 mg PO DAILY 09/19/18 08/31/19 History Multivitamins, Thera [Multivitamin 1 tab PO DAILY 03/09/19 08/31/19 History (formulary)] Loperamide HCl [Imodium A-D] 4 mg PO BID PRN 03/14/19 08/31/19 History Aspirin EC [Ecotrin Low Dose] 81 mg PO DAILY 08/16/19 08/31/19 History Levothyroxine Sodium 150 mcg PO HS 08/16/19 08/31/19 History Allergies Allergy/AdvReac Type Severity Reaction Status Date / Time sulfamethoxazole Allergy Severe joint pain Verified 08/16/19 11:43 [From Bactrim] trimethoprim [From Bactrim] Allergy Severe joint pain Verified 08/16/19 11:43 clindamycin Allergy throat Verified 08/16/19 11:43 swells morphine Allergy severe arm Verified 08/16/19 11:43 swelling and reddness Penicillins Allergy throat Verified 08/16/19 11:43 swelling cariprazine [From Vraylar] AdvReac Chest Pain Verified 08/16/19 11:43 Physical Exam Physical Examinations : -Constitutiona : Cooperative , not in acute distress . -HEENT : nech : supple , no Lymphadenopathy , normal thyroid size . : eyes : no ptosis , no icterus, no photophobia . : ENT : normal of hearing , normal oropharynx , no Thrush . - Respiratory : Chest clear to auscultations Bilaterally , no wheezing , no Rhonchi . - Cardiovascula : regular rate and rhythem , S1 , S2 , no S3 , no S4. - Gastrointestina : abdomen soft no tenderness , bowel sounds , no organomegally . - Genitourinary : Defferred . - neurologic : Cranial nerve II to XII intact , no focal neurological deffecit . -psychatric : alert , oriented X 3 , appropriate affect , intact judgment and insight . -Lymphatic : no Lymphadenopathy . - musculoskeltal : Cervical Spine motor stregnth in the deltoid and biceps, normal right side , normal Left side motor stregnth biceps and the wrist extensors normal right side ,normal left side . motor stregnth in the triceps muscle . normal Right side , normal Left side deep tendon reflexes normal at the biceps , normal at Brachioradialis , normal at triceps. cervical facet loading test: Positive Bilaterally Spurling test negative bilaterally. Neck distraction test negative bilaterally. Ashley sign negative bilaterally. Tenderness over the occipital notch bilaterally Lumber spine moter stegnth lower extremities ,thigh and legs 5/5 Right side , 5/5 Left side Results Labs: MRI of the cervical spine done= [facility]= C3 4 C4 5 and C5 6 uncovertebral hypertrophy, C5 6 disc herniation and facet arthropathy is 67 disc herniation Brain MRI unremarkable. Head MRA= unremarkable Assessment and Plan Plan: Assessment and plan=1-occipital neuralgia. 2-cervicogenic headache. 3-cervical spondylosis and cervical facet arthropathy. 4-cervical herniated disc disease. Patient will be good candidate for occipital nerve block bilaterally Time with Patient: Greater than 30 PQRS Measure Charge Sheet Measure #130: Documentation of Current Meds in Medical Chart: Patient's medications documented in chart Measure #226: Tobacco Use: Screen & Cessation Intervention: Pt not a tobacco user Measure #111: Pneumonia Vaccination: Pneumococcal vaccine NOT administered or pr eviously given Measure #47: Advance Care Plan: Advance care planning discussed & documented, pt chose/unable to give Measure #412: Opioid Treatment Agreement: No documentation of signed opioid treatment agreement Measure #408: Opioid Therapy Follow-up Evaluation: Patient had NO f/u eval minimum every 3 months during opioid therapy Measure #317: Preventitive Care & Scrn High Bld Press & F/U: Pre-hypertensive or hypertensive BP documented, pt will f/u with PCP Measure #128: Body Mass Index (BMI) Screening & Follow-up: BMI documented ABOVE normal parameters - f/u documented Measure #131: Pain Assessment & Follow-up: Pain positive & plan documented Measure #431: Unhealthy Alcohol Use Preventative Care & Scrn: Patient not identified as an unhealthy alcohol user PQRS Narrative: Smoking Status Former smoker Blood Pressure 143/91 Pain Intensity [Posterior 1 Occipital] Scale Used Numeric (1 - 10) Hx Alcohol Use (MH) Yes Home Medications: Ambulatory Orders Sertraline HCl [Zoloft] 200 mg PO HS 05/10/14 clonazePAM [KlonoPIN] 1 mg PO BID 05/10/14 Budesonide-Formot 160-4.5 Mcg [Symbicort 160-4.5 Mcg Inhaler] 2 puff INHALATION RT-BID 09/19/18 Diltiazem HCl [Diltiazem 24Hr ER] 180 mg PO HS 09/19/18 buPROPion XL [Wellbutrin XL] 300 mg PO DAILY 09/19/18 Multivitamins, Thera [Multivitamin (formulary)] 1 tab PO DAILY 03/09/19 Loperamide HCl [Imodium A-D] 4 mg PO BID PRN 03/14/19 Aspirin EC [Ecotrin Low Dose] 81 mg PO DAILY 08/16/19 Levothyroxine Sodium 150 mcg PO HS 08/16/19
== END | disposition home or self-care (01) ==
LOC: PNWHC3 13:31
PROVIDERS: ATTEND Specialist
DX: M50.20 Other cervical disc displacement, unspecified cervical region (principal); M47.812 Spondylosis without myelopathy or radiculopathy, cervical region; M46.92 Unspecified inflammatory spondylopathy, cervical region; M53.80 Other specified dorsopathies, site unspecified; G43.909 Migraine, unspecified, not intractable, without status migrainosus; M54.81 Occipital neuralgia; J45.909 Unspecified asthma, uncomplicated; Z87.891 Personal history of nicotine dependence; Z79.51 Long term (current) use of inhaled steroids; Z79.82 Long term (current) use of aspirin; Z79.890 Hormone replacement therapy; Z79.899 Other long term (current) drug therapy; Z88.1 Allergy status to other antibiotic agents; Z88.5 Allergy status to narcotic agent; Z88.0 Allergy status to penicillin; Z88.8 Allergy status to other drugs, medicaments and biological substances
CPT/HCPCS: 99211

== ENCOUNTER 2020-05-30 16:32 | Emergency (ER) | payer MEDICAID, OTHER ==
[2020-05-30] MEDS ORDERED: HYDROmorphone 1 MG/ML 1 ML SYRINGE IM STA (17:09)
[2020-05-30] MEDS ORDERED: ACETAMINOPHEN TAB 500 MG TAB PO STA (17:09)
[2020-05-30] MEDS ORDERED: IBUPROFEN 800 MG TAB PO STA (17:09)
[2020-05-30] MEDS ORDERED: diazePAM 5 MG TAB PO STA (17:09)
--- NOTE | 2020-05-30 17:21 | ED ---
Back Pain HPI - General Chief Complaint: Back Pain/Injury Stated Complaint: Back Pain Time Seen by Provider: 05/30/20 16:46 Source: patient, RN notes reviewed, old records reviewed Limitations: no limitations - History of Present Illness Initial Comments: This is a 34 female to the ED co back pain acute on chronic back pain, patient's presenting for acute on chronic back pain, with no trauma. No fevers. No neurological complaints no loss of bowel or bladder is able ambulate. Patient's concerned that something worse may going on with her back and is presenting for other imaging and studies, at this point she states she does not need any medication and pain medication although she believes her pain may have started a lifting some papers yesterday at work. She walks this morning with worse pain. MD Complaint: back pain, other -: days(s) Similar Symptoms Previously: Yes Place: home Radiation: none Severity: moderate Severity scale (1-10): 4 Quality: burning Consistency: constant Improves With: none Worsens With: none Context: unknown Associated Symptoms: denies other symptoms - Related Data Home Medications Medication Instructions Recorded Confirmed Sertraline HCl [Zoloft] 200 mg PO HS 05/10/14 08/31/19 clonazePAM [KlonoPIN] 1 mg PO BID 05/10/14 08/31/19 Budesonide-Formot 160-4.5 Mcg 2 puff INHALATION RT-BID 09/19/18 08/31/19 [Symbicort 160-4.5 Mcg Inhaler] Diltiazem HCl [Diltiazem 24Hr ER] 180 mg PO HS 09/19/18 08/31/19 buPROPion XL [Wellbutrin XL] 300 mg PO DAILY 09/19/18 08/31/19 Multivitamins, Thera [Multivitamin 1 tab PO DAILY 03/09/19 08/31/19 (formulary)] Loperamide HCl [Imodium A-D] 4 mg PO BID PRN 03/14/19 08/31/19 Aspirin EC [Ecotrin Low Dose] 81 mg PO DAILY 08/16/19 08/31/19 Levothyroxine Sodium 150 mcg PO HS 08/16/19 08/31/19 Allergies Allergy/AdvReac Type Severity Reaction Status Date / Time sulfamethoxazole Allergy Severe joint pain Verified 05/30/20 16:36 [From Bactrim] trimethoprim [From Bactrim] Allergy Severe joint pain Verified 05/30/20 16:36 bee venom protein (honey bee) Allergy Swelling Verified 05/30/20 16:37 clindamycin Allergy throat Verified 05/30/20 16:36 swells morphine Allergy severe arm Verified 05/30/20 16:36 swelling and reddness Penicillins Allergy throat Verified 05/30/20 16:36 swelling cariprazine [From Vraylar] AdvReac Chest Pain Verified 05/30/20 16:36 Review of Systems ROS Statement: Those systems with pertinent positive or pertinent negative responses have been documented in the HPI. ROS Other: All systems not noted in ROS Statement are negative. Past Medical History Past Medical History: Asthma, Chest Pain / Angina, CVA/TIA, Thyroid Disorder Additional Past Medical History / Comment(s): 2 TIA'S R/T ABLATION 04/2019. Palpitations, recurrent UTIs, gastric ulcers, anemia, DDD, chronic cervical and low back pain, head injury/concussion with sports, migraines, History of Any Multi-Drug Resistant Organisms: None Reported Past Surgical History: Cardiac Ablation, Section, Cholecystectomy, Heart Catheterization, Orthopedic Surgery, Tonsillectomy, Tubal Ligation Additional Past Surgical History / Comment(s): 2013 cardiac cath-normal, 08/24/18 tubal ligation, L foot tendon/bunion surgery. Egd. EPS 03/2019 WITH ABLATION Past Anesthesia/Blood Transfusion Reactions: No Reported Reaction Past Psychological History: Anxiety, Depression Smoking Status: Never smoker Past Alcohol Use History: Occasional Past Drug Use History: None Reported - Past Family History Father History Unknown: Yes Mother Family Medical History: Hypertension General Exam Limitations: no limitations General appearance: alert, in no apparent distress Head exam: Present: atraumatic, normocephalic, normal inspection Eye exam: Present: normal appearance, PERRL, EOMI. Absent: scleral icterus, conjunctival injection, periorbital swelling ENT exam: Present: normal exam, mucous membranes moist Neck exam: Present: normal inspection. Absent: tenderness, meningismus, lymphadenopathy Respiratory exam: Present: normal lung sounds bilaterally. Absent: respiratory distress, wheezes, rales, rhonchi, stridor Cardiovascular Exam: Present: normal rhythm, tachycardia, normal heart sounds. Absent: systolic murmur, diastolic murmur, rubs, gallop, clicks GI/Abdominal exam: Present: soft, normal bowel sounds. Absent: distended, tenderness, guarding, rebound, rigid Extremities exam: Present: normal inspection, full ROM, normal capillary refill. Absent: tenderness, pedal edema, joint swelling, calf tenderness Back exam: Present: normal inspection Neurological exam: Present: alert, oriented X3, CN II-XII intact Psychiatric exam: Present: normal affect, normal mood Skin exam: Present: warm, dry, intact, normal color. Absent: rash Course Vital Signs 05/30/20 16:34 Temperature 98.3 F Pulse Rate 101 H Respiratory 20 Rate Blood Pressure 145/75 O2 Sat by Pulse 98 Oximetry - Reevaluation(s) Reevaluation #1: 05/30/20 18:22 Medical record is reviewed Reevaluation #2: 05/30/20 18:22 Patient refusing pain medication here in the ER Reevaluation #3: 05/30/20 18:22 Will get repeat imaging of back, patient is aware that with prior MRI and inability to get MRI here today in the emergency department that any imaging will be pretty inconsequential Reevaluation #4: 05/30/20 18:23 Patient is no neurological findings on repeat exam Medical Decision Making - Medical Decision Making 34 female DF for evaluation known history of degenerative disc disease like the symptoms may be progressing original evaluation. Patient now requiring anything for pain has no neurological deficit will follow-up with original physicians as directed - Radiology Data Radiology results: report reviewed (CT shows degenerative disc disease with increased thecal sac and abdominal), image reviewed Disposition Clinical Impression: Sciatica, Lumbar radiculopathy, Degeneration of intervertebral disc Disposition: HOME SELF-CARE Condition: Good Instructions (If sedation given, give patient instructions): Acute Low Back Pain (ED) Is patient prescribed a controlled substance at d/c from ED?: No Referrals: Nicholas Stoddard MD [Primary Care Provider] - 1-2 days
--- NOTE | 2020-05-30 18:54 | CT ---
EXAMINATION TYPE: CT sacrum wo con DATE OF EXAM: 05/30/2020 COMPARISON: None. HISTORY: lower back pain after injury. CT DLP: 1400.8 mGycm Automated exposure control for dose reduction was used. FINDINGS: Sacrum grossly intact without acute fracture or dislocation. Slight anterior positioning of the coccy x may reflect product of old injury is partially imaged. Sacral alar maintained bilaterally. Sacroili ac joints show mild left greater than right narrowing with some sclerosis. Tubal ligation clips in the periphery of the anteverted uterus. Right ovarian 3.4 cm lesion favor sim ple thin-walled cyst image 59. IMPRESSION: No acute fracture in the sacrum.
--- NOTE | 2020-05-30 18:57 | CT ---
EXAMINATION TYPE: CT lumbar spine wo con DATE OF EXAM: 05/30/2020 6:34 PM COMPARISON: None. HISTORY: Lower back pain CT DLP: 1400.8 mGycm Automated exposure control for dose reduction was used. Unenhanced CT of the lumbar spine was performed. Bone and soft tissue window settings are submitted as well as coronal and sagittal reconstructions. There are 5 lumbar type vertebra identified. There is levoconvex scoliosis centered L4 level. Vertebr al body heights are maintained. No acute fracture or dislocation is seen. The disc space heights are fairly well maintained. There is mild broad disc bulge mildly effacing the anterior thecal sac at L3-L4 and L4-L5 levels on s agittal and axial images. There is mild to moderate right greater than left facet arthropathy at L4-L 5 level. There is mild facet arthropathy at L5-S1 level. Paraspinal muscle bulk is preserved. Visuali zed abdomen is unremarkable. IMPRESSION: As above.
[2020-05-30] MEDS ORDERED: dexAMETHasone 4 MG TAB PO STA (19:09)
[2020-05-30 19:19] VITALS: BP 121/75; PULSE 67; RESP 18; TEMP 98
== END 2020-05-30 19:20 | disposition home or self-care (01) ==
LOC: EC 16:32
DX: M51.16 Intervertebral disc disorders with radiculopathy, lumbar region (principal); J45.909 Unspecified asthma, uncomplicated; E07.9 Disorder of thyroid, unspecified; I20.9 Angina pectoris, unspecified; F41.9 Anxiety disorder, unspecified; F32.9 Major depressive disorder, single episode, unspecified; Z79.82 Long term (current) use of aspirin; Z79.899 Other long term (current) drug therapy; Z79.51 Long term (current) use of inhaled steroids; Z79.890 Hormone replacement therapy; Z88.2 Allergy status to sulfonamides; Z88.1 Allergy status to other antibiotic agents; Z91.030 Bee allergy status; Z88.5 Allergy status to narcotic agent; Z88.0 Allergy status to penicillin; Z88.8 Allergy status to other drugs, medicaments and biological substances; Z86.73 Personal history of transient ischemic attack (TIA), and cerebral infarction without residual deficits
CPT/HCPCS: 72131; 72192; 99284; J8540

== ENCOUNTER → 2020-06-27 | Outpatient (CLI) | payer OTHER ==
--- NOTE | 2020-06-29 14:56 | MR ---
EXAMINATION TYPE: MR lumbar spine wo/w con DATE OF EXAM: 06/29/2020 COMPARISON: Plain film 06/17/2020 HISTORY: LBP, BLE radiculopathy TECHNIQUE: Multiplanar, multisequence images of the lumbar spine were acquired utilizing [address] gadolinium contrast. L1-L2: Normal disc appearance without desiccation. No herniation, protrusion or disc bulging. No ca nal stenosis is present. Foramina are patent bilaterally. L2-L3: Normal disc appearance without desiccation. No herniation, protrusion or disc bulging. No ca nal stenosis is present. Foramina are patent bilaterally. L3-L4: Normal disc appearance without desiccation. No herniation, protrusion or disc bulging. No ca nal stenosis is present. Foramina are patent bilaterally. L4-L5: Circumferential extension endplate disc complex encroaches on the right neural foramen. [employer] ior extension endplate disc complex causes only minimal anterior mass effect on the thecal sac. There is facet arthropathy causing some posterior lateral mass effect on the thecal sac from the right, L5-S1: Normal disc appearance without desiccation. No herniation, protrusion or disc bulging. No ca nal stenosis is present. Foramina are patent bilaterally. Lumbar segments are intact. No paraspinal masses are identified. Conus medullaris has a normal appe arance. There is a spinal curvature. Loss of disc height signal is present at L3-4, L4-5. Postcontras t images show some mild enhancement at the patient's or disc bulge L4-5 there is IMPRESSION: Mild degenerative disc disease, spinal curvature, foraminal encroachment
== END | disposition home or self-care (01) ==
LOC: RADMRIMAIN 07:46
PROVIDERS: ATTEND Orthopaedic Surgery
DX: M51.16 Intervertebral disc disorders with radiculopathy, lumbar region (principal); M43.8X6 Other specified deforming dorsopathies, lumbar region
CPT/HCPCS: 72158; A9585

== ENCOUNTER → 2020-07-26 | Outpatient (CLI) | payer OTHER ==
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
== END | disposition home or self-care (01) ==
LOC: RADMRIMAIN 19:02
PROVIDERS: ATTEND Orthopaedic Surgery
DX: M50.222 Other cervical disc displacement at C5-C6 level (principal)
CPT/HCPCS: 72141

== ENCOUNTER 2020-09-03 08:42 | Day surgery (SDC) | payer OTHER ==
[2020-08-29 11:57] VITALS: BMI 32.6
[2020-09-03 09:07] VITALS: RESP 16; TEMP 98.2
[2020-09-03] MEDS ORDERED: LIDOCAINE 1% (10MG/ML) FOR IV START INTRADERMA ONE (09:17)
[2020-09-03] MEDS ORDERED: IOPAMIDOL M200 10 ML VIAL ONE (09:31)
[2020-09-03] MEDS ORDERED: MIDAZOLAM 2 MG/2 ML VIAL ONE (09:31)
[2020-09-03] MEDS ORDERED: DEXAMETHASONE SOD PHOSPHATE 10 MG/ML 1 ML VIAL ONE (09:31)
[2020-09-03] MEDS ORDERED: fentaNYL (PF) 50 MCG/ML 2 ML AMP ONE (09:31)
[2020-09-03] MEDS ORDERED: IV FLUID CONTINUATION 1,000 ML IV ONE (09:57)
[2020-09-03 10:18] VITALS: BP 114/77; PULSE 73
--- NOTE | 2020-09-03 13:23 | FL ---
Fluoroscopy HISTORY: Pain 20 seconds fluoroscopy time supplied to the referring clinician. 2 intraoperative C-arm images docum ent the procedure. See dictated report from anesthesia.
--- NOTE | 2020-09-03 17:00 | P.PCN ---
Date of Procedure: 09/03/20 Procedure(s) Performed: PREOPERATIVE DIAGNOSIS: 1-Cervical radiculopathy . 2-cervical herniated disc disease POSTOPERATIVE DIAGNOSIS: Same as preoperative diagnoses. PROCEDURE 1. Transforaminal epidural steroid injection under fluoroscopic guidance at left C6-7 level. (Fluoroscopy images stored on file in the radiology Department ) ANESTHESIA: Local with 1% lidocaine 3 ml , moderate sedation with intravenous Versed 1 mg and fentanyle 50 micrograms. EBL: Minimal PROCEDURE INDICATION: The patient with severe neck pain and radiculopathy to the upper extremity , the symptoms unresponsive to conservative treatment. PROCEDURE DESCRIPTION / TECHNIQUE: The patient was seen and identified in the preoperative area. Risks, benefits, complications, and alternatives were discussed with the patient. The patient agreed to proceed with the procedure and signed the consent. IV was started, and vital signs were stable. Patient was taken to the OR and time out was completed. The patient was placed in the prone position on procedure table and a pillow was placed under the abdomen to reduce lumbar lordosis. The cervical area was prepped and draped in the usual sterile fashion. Critical pause was taken. Vital signs were closely monitored during the procedure. Conscious sedation was used during the procedure to decrease patient s anxiety. Using oblique fluoroscopy, the Left C6-7 level was identified, in the lateral view , the skin and deeper tissues just below was localized with 1% lidocaine. Subsequently, a 22-gauge 3.5-inch spinal needle was advanced under a tunneled view fluoroscopic guidance just underneath the foraminotomy of at the left C6-7 Under lateral fluoroscopy, the needle was then advanced to the posterior border of the interforaminal space, needle placement confirmed with AP and lateral view.then After negative aspiration of CSF and blood and with no paresthesias, 1 mL Isovue 200 contrast dye was injected excellent epidurogram , 2 mL of block solution containing 20 mg Dexamethasone and 1 mL of 0.9% normal saline PF was injected. Needle was removed. At the end of the procedure, skin was cleansed, and bandages were applied. COMPLICATIONS:none DISPOSITION / PLANS: The patient was placed in a supine position and transferred to the recovery area in a stable condition for observation. There was no evidence of lower extremity motor or sensory deficit after the procedure. Patient was discharged from the recovery room after meeting discharge criteria. Home discharge instructions were given to the patient by the staff. The patient was reexamined prior to discharge.
== END 2020-09-03 10:28 | disposition home or self-care (01) ==
LOC: ORPAIN 08:42
PROVIDERS: ATTEND Specialist
DX: M50.10 Cervical disc disorder with radiculopathy, unspecified cervical region (principal); Z88.1 Allergy status to other antibiotic agents; Z88.5 Allergy status to narcotic agent; Z88.0 Allergy status to penicillin; Z88.2 Allergy status to sulfonamides
CPT/HCPCS: 64483; 81025; J2250; J1100; J3010; Q9966; 64479; 99152

== ENCOUNTER → 2020-09-30 | Outpatient (CLI) | payer OTHER ==
[2020-09-30 08:37] LABS: Basophils % (A) 1 %; Eosinophils # (A) 0.1 k/uL (0-0.7); Eosinophils % (A) 1 %; HCT 36.5 % (34.0-46.0); HGB 12.6 gm/dL (11.4-16.0); Lymphocytes # (A) 1.6 k/uL (1.0-4.8); Lymphocytes % (A) 34 %; MCH 31.7 pg (25.0-35.0); MCHC 34.7 g/dL (31.0-37.0); MCV 91.5 fL (80.0-100.0); Mean Platelet Volume 8.1; Monocytes # (A) 0.3 k/uL (0-1.0); Monocytes % (A) 6 %; Neutrophils # (A) 2.7 k/uL (1.3-7.7); Neutrophils % (A) 57 %; Platelet Count 238 k/uL (150-450); RBC 3.99 m/uL (3.80-5.40); RDW 12.4 % (11.5-15.5); WBC 4.8 k/uL (3.8-10.6)
[2020-09-30 08:42] LABS: Prothrombin Time 10.7 sec (9.0-12.0)
[2020-09-30 09:02] LABS: ALT 47 U/L (4-34); AST 53 U/L (14-36); African American GFR (CKD) >90 (>60 ml/min/1.73 sqM); Albumin 4.3 g/dL (3.5-5.0); Alkaline Phosphatase 60 U/L (38-126); Anion Gap 7 mmol/L; Blood Urea Nitrogen 14 mg/dL (7-17); Calcium 9.7 mg/dL (8.4-10.2); Carbon Dioxide 25 mmol/L (22-30); Chloride 105 mmol/L (98-107); Glucose 96 mg/dL (74-99); Non-African American GFR(CKD) >90 (>60 ml/min/1.73 sqM); Potassium 3.9 mmol/L (3.5-5.1); Sodium 137 mmol/L (137-145); Total Bilirubin 0.5 mg/dL (0.2-1.3); Total Protein 7.1 g/dL (6.3-8.2)
== END | disposition home or self-care (01) ==
LOC: LABPAT 08:02
PROVIDERS: ATTEND Orthopaedic Surgery
DX: Z01.812 Encounter for preprocedural laboratory examination (principal); M50.20 Other cervical disc displacement, unspecified cervical region
CPT/HCPCS: 36415; 80053; 85025; 85610; 87070

== ENCOUNTER 2020-10-08 06:06 | Observation (INO) | payer OTHER ==
[2020-10-02 14:49] VITALS: BMI 32.6
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
[~2020-10-08 06:06] MED LIST changes: +ACETAMINOPHEN TAB 500 MG TAB PO PRN; +DEXAMETHASONE SOD PHOSPHATE 4 MG/ML 1 ML VIAL IV ONE; +DEXAMETHASONE SOD PHOSPHATE 4 MG/ML 1 ML VIAL IVP PRN; -LACTATED RINGERS 1,000 ML IV SCH; +MIDAZOLAM 2 MG/2 ML VIAL IV PRN; +ONDANSETRON 4 MG/2 ML VIAL IVP ONE; +ONDANSETRON 4 MG/2 ML VIAL IVP PRN; +VANCOMYCIN 1,500 MG in SODIUM CHLORIDE 0.9% 250 ML IVPB PRN
[2020-10-08] MEDS: LIDOCAINE 1% (10MG/ML) FOR IV START INTRADERMA PRN ×2 (07:45→07:46)
[2020-10-08] MEDS: LACTATED RINGERS 1,000 ML IV SCH (07:45)
[2020-10-08] MEDS ORDERED: DEXAMETHASONE SOD PHOSPHATE 10 MG/ML 1 ML VIAL ONE (07:54)
[2020-10-08] MEDS ORDERED: LIDOCAINE 1% INJ 10MG/ML (20 ML MDV) ONE (07:54)
[2020-10-08] MEDS ORDERED: PROPOFOL 10 MG/ML 20 ML VIAL IV ONE (07:54)
[2020-10-08] MEDS ORDERED: MIDAZOLAM 2 MG/2 ML VIAL ONE (07:54)
[2020-10-08] MEDS ORDERED: KETOROLAC 15 MG/ML 1 ML VIAL ONE (07:54)
[2020-10-08] MEDS ORDERED: KETAMINE 10 MG/ML 20 ML VIAL ONE (07:54)
[2020-10-08] MEDS ORDERED: SUCCINYLCHOLINE CHLORIDE 100 MG/5 ML SYR IV ONE (07:54)
[2020-10-08] MEDS ORDERED: fentaNYL (PF) 50 MCG/ML 2 ML AMP ONE (07:54)
[2020-10-08] MEDS ORDERED: METOPROLOL TARTRATE 5 MG/5 ML VIAL IVP ONE (07:54)
[2020-10-08] MEDS ORDERED: THROMBIN (BOVINE) 5,000 UNIT VIAL TOPICAL ONE (07:58)
[2020-10-08] MEDS ORDERED: GELATIN SPONGE,ABSORB (LARGE) 1 EACH SPONGE TOPICAL ONE (07:58)
[2020-10-08] MEDS ORDERED: LIDOCAINE 2%-EPI 1:100,000 20 ML VIAL SQ ONE (07:58)
[2020-10-08] MEDS ORDERED: BUPIVACAINE (PF) 0.5% 30 ML VIAL SQ ONE (07:58)
[2020-10-08] MEDS ORDERED: ONDANSETRON 4 MG/2 ML VIAL IVP PRN (11:33)
[2020-10-08] MEDS ORDERED: HYDROmorphone 0.5 MG/0.5 ML SYRINGE IVP PRN (11:33)
[2020-10-08] MEDS ORDERED: HYDROcodone/APAP 10-325MG 1 EACH TAB PO PRN (11:33)
[2020-10-08] MEDS ORDERED: SENNOSIDES-DOCUSATE SODIUM 1 EACH TAB PO PRN (11:33)
[2020-10-08] MEDS: HYDROmorphone 0.5 MG/0.5 ML SYRINGE IVP PRN ×3 (11:36→12:10)
[2020-10-08] MEDS ORDERED: VANCOMYCIN IV PER PHARMACY 1 EACH MISC MISCELLANE PRN (11:37)
--- NOTE | 2020-10-08 12:05 | FL ---
EXAMINATION TYPE: FL guidance operating room DATE OF EXAM: 10/08/2020 HISTORY: Fluoroscopy time 2 minutes and 22 seconds of fluoroscopy provided. IMPRESSION: 1. Fluoroscopy time.
--- NOTE | 2020-10-08 12:07 | XR ---
EXAMINATION TYPE: XR cervical spine limited DATE OF EXAM: 10/08/2020 COMPARISON: NONE HISTORY: Anterior cervical fusion TECHNIQUE: 4 images are submitted FINDINGS: Images demonstrate a surgical instrument anterior to the cervical spine. ET tube is seen. S urgical changes noted. IMPRESSION: Intraoperative
[2020-10-08] MEDS: KETOROLAC 15 MG/ML 1 ML VIAL IVP SCH ×3 (15:51→23:53)
[2020-10-08] MEDS: 0.9% NACL WITH KCL 20 MEQ/L 1,000 ML IV SCH (16:31)
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
[2020-10-08] MEDS: VANCOMYCIN 1,500 MG in SODIUM CHLORIDE 0.9% 250 ML IVPB SCH (19:08)
[2020-10-08] MEDS: CYCLOBENZAPRINE 10 MG TAB PO PRN (19:09)
[2020-10-08] MEDS ORDERED: DEXAMETHASONE SOD PHOSPHATE 4 MG/ML 1 ML VIAL IV PRN (20:16)
[2020-10-08] MEDS: HYDROcodone/APAP 5-325MG 1 EACH TAB PO PRN (20:38)
[2020-10-08] MEDS: ASPIRIN 325 MG TAB PO SCH (20:38)
[2020-10-08] MEDS: SYMBICORT 160-4.5 MCG INHALER INHALATION SCH (20:53)
[2020-10-08] MEDS ORDERED: SERTRALINE 100 MG TAB PO SCH (21:00)
[2020-10-08] MEDS ORDERED: LEVOTHYROXINE 75 MCG TAB PO SCH (21:00)
[2020-10-08] MEDS ORDERED: DILTIAZEM CD 180 MG CAP.ER.24H PO SCH (21:00)
[2020-10-08] MEDS: GABAPENTIN 300 MG CAP PO SCH (21:09)
[2020-10-09] MEDS: LACTATED RINGERS 1,000 ML IV SCH (00:25)
[2020-10-09] MEDS: HYDROcodone/APAP 5-325MG 1 EACH TAB PO PRN (03:06)
[2020-10-09] MEDS: CYCLOBENZAPRINE 10 MG TAB PO PRN (03:06)
[2020-10-09] MEDS: KETOROLAC 15 MG/ML 1 ML VIAL IVP SCH ×2 (05:38→13:05)
[2020-10-09] MEDS ORDERED: PANTOPRAZOLE 40 MG TABLET PO SCH (07:30)
--- NOTE | 2020-10-09 07:54 | XR ---
EXAMINATION TYPE: XR cervical spine limited DATE OF EXAM: 10/09/2020 COMPARISON: NONE HISTORY: Postop TECHNIQUE: Previews submitted FINDINGS: Postsurgical changes are seen at C5-6 and C6-C7. Surgical clips are seen in the prevertebra l soft tissue region. Prevertebral soft tissue structures are within normal limits. Small amount of s ubcutaneous emphysema suspected laterally on the frontal view. IMPRESSION: Postsurgical change in near-anatomic alignment.
[2020-10-09] MEDS: ASPIRIN 325 MG TAB PO SCH (08:15)
[2020-10-09] MEDS: VANCOMYCIN 1,500 MG in SODIUM CHLORIDE 0.9% 250 ML IVPB SCH (08:15)
[2020-10-09] MEDS: GABAPENTIN 300 MG CAP PO SCH (08:18)
--- NOTE | 2020-10-09 08:25 | P.PN ---
Subjective Progress Note Date: 10/09/20 Patient seen and examined this morning. She is doing well she is eating breakfast. She states no difficulty with swallowing no hoarse voice. States that her arms do feel better she feels less pressure in time. She denies any other numbness or tingling she denies any new weakness. She denies any fevers chills or some breath or chest pain at this time. Objective - Vital Signs Vital signs: Vital Signs Temp 98.1 F 10/09/20 04:46 Pulse 80 10/09/20 04:46 Resp 16 10/09/20 04:46 BP 147/83 10/09/20 04:46 Pulse Ox 96 10/09/20 04:46 Intake & Output 10/08/20 10/09/20 10/09/20 18:59 06:59 18:59 Intake Total 1350 1870 Output Total 25 Balance 1325 1870 Weight 99.6 kg Intake: IV 1350 Intake, IV Titration 1150 Amount 0.9% NaCl with KCl 20 Meq 900 /l 1,000 ml @ 75 mls/hr IV .[id number] LUCILA Rx#: [id number] Vancomycin 1,500 mg In 250 Sodium Chloride 0.9% 250 ml @ 125 mls/hr IVPB Q12H LUCILA Rx#:[id number] Oral 720 Output: Estimated Blood Loss 25 Other: # Voids 2 1 - Exam Patient is alert and oriented 3 appears well-nourished well-hydrated is in no acute distress. They does not appear septic. On exam the patient has no tenderness to palpation of her thoracic or lumbar spine. There is no edema or ballottement sign. They have good strength in her lower extremities with 5 out of 5 dorsiflexion plantar flexion EHL and FHL bilaterally. Upper extremities show 5/5 strength in all major muscle groups. There is FROM that is painless of the b/l UE and LE in all major joints. They are intact to light touch sensation in L2 to S1 nerve distribution. Patient has palpable dorsalis pedis was posterior tibial pulses. Compartments are soft and compressible. Patient shows a negative Homans, Crockett's, negative Babinski's negative clonus bilaterally. negative straight leg raise bilaterally. No tensioning signs.Cranial nerves II through XII are grossly intact. Overall alignment is well-maintained in the sagittal coronal planes. Incision is clean dry and intact at this time. C-collar is in place. Assessment and Plan Assessment: 1. C5-6 HNP with radiculopathy 2. C6-7 large HNP with severe radiculopathy 3. b/l UE radiculopathy 4. UE weakness Plan: -Appreciate medicine management. Symptom Control: -Pain control: Adequate at this time . Activity: -Aggressive ambulation protocol. OOB with all meals. OOB or in chair 4-5x daily. -PT/OT Wear soft c-collar to comfort Prophylaxis: -TEDs, SCDs, mechanical ppx. OK for heparin today. Early ambulation is best. -GI ppx. Imaging/labs: X-rays of the C-spine taken today demonstrate intact and good placement of the hardware -Trend labs as appropriate Intervention: Pain medication as needed Light range of motion neck Dispo: Discharged home today
[2020-10-09] MEDS ORDERED: CHOLECALCIFEROL 25 MCG (1000 IU) TABLET PO SCH (09:00)
[2020-10-09] MEDS ORDERED: buPROPion XL 300 MG TAB.ER.24H PO SCH (09:00)
--- NOTE | 2020-10-09 09:01 | P.PN ---
Subjective Progress Note Date: 10/09/20 Principal diagnosis: neck pain Patient is a 34-year-old female with a history of coronary artery disease, paroxysmal atrial fibrillation status post cardiac ablation, asthma, GERD, hypothyroidism, and history of prior CVA who presented for elective cervical disc replacement. She underwent procedure with a normal postoperative course. Patient seen and examined at bedside. Pain is well controlled. No nausea or vomiting today. Some dizziness when standing but it resolves quickly. General: non toxic, no distress, appears at stated age Derm: warm, dry Head: atraumatic, normocephalic, symmetric, soft cervical collar in place Eyes: EOMI, no lid lag, anicteric sclera Mouth: no lip lesion, mucus membranes moist Cardiovascular: S1S2 reg, no murmur, positive posterior tibial pulse bilateral, Lungs: CTA bilateral, no rhonchi, no rales , no accessory muscle use Abdominal: soft, nontender to palpation, no guarding, no appreciable organomegaly Ext: no gross muscle atrophy, no edema, no contractures Psych: Alert, oriented, appropriate affect History of A. fib status post ablation Hypothyroidism Depression with anxiety CVA Status post cervical 56 and cervical 6-7 disc replacement Medically optimized for discharge. Med rec addressed. Follow-up with PCP in 2-3 days. Home meds resume except ASA 81 mg as now on 325 mg. Objective - Vital Signs Vital signs: Vital Signs Temp 98.1 F 10/09/20 04:46 Pulse 80 10/09/20 04:46 Resp 16 10/09/20 04:46 BP 147/83 10/09/20 04:46 Pulse Ox 96 10/09/20 04:46 Intake & Output 10/08/20 10/09/20 10/09/20 18:59 06:59 18:59 Intake Total 1350 1870 Output Total 25 Balance 1325 1870 Weight 99.6 kg Intake: IV 1350 Intake, IV Titration 1150 Amount 0.9% NaCl with KCl 20 Meq 900 /l 1,000 ml @ 75 mls/hr IV .[id number] LUCILA Rx#: [id number] Vancomycin 1,500 mg In 250 Sodium Chloride 0.9% 250 ml @ 125 mls/hr IVPB Q12H LUCILA Rx#:[id number] Oral 720 Output: Estimated Blood Loss 25 Other: # Voids 2 1 - Labs CBC & Chem 7: 10/09/20 06:15 10/09/20 06:15
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
[2020-10-09] MEDS: SYMBICORT 160-4.5 MCG INHALER INHALATION SCH (09:06)
[2020-10-09 10:33] LABS: Basophils # (A) 0.01 X 10*3/uL (0.00-0.10); Basophils % (A) 0.1 %; Eosinophils # (A) 0 X 10*3/uL (0.04-0.35); Eosinophils % (A) 0 %; HCT 34.7 % (37.2-46.3); HGB 11.2 g/dL (12.0-15.0); Lymphocytes # (A) 1.36 X 10*3/uL (0.90-5.00); Lymphocytes % (A) 12.7 %; MCH 30.2 pg (27.0-32.0); MCHC 32.3 g/dL (32.0-37.0); MCV 93.5 fL (80.0-97.0); Mean Platelet Volume 11.7 fL (9.5-12.2); Monocytes % (A) 6.5 %; Neutrophils # (A) 8.63 X 10*3/uL (1.80-7.70); Neutrophils % (A) 80.4 %; Platelet Count 246 X 10*3/uL (140-440); RBC 3.71 X 10*6/uL (4.10-5.20); RDW 12.1 % (11.5-14.5); WBC 10.73 X 10*3/uL (4.50-10.00)
[2020-10-09 10:54] LABS: African American GFR (CKD) 109.9 (60.0-200.0); Anion Gap 4.8 mmol/L (4.00-12.00); BUN/Creat Ratio 16.25 Ratio (12.00-20.00); Calcium 9.1 mg/dL (8.7-10.3); Carbon Dioxide 24.2 mmol/L (21.6-31.8); Non-African American GFR(CKD) 94.8 (60.0-200.0); Potassium 4.3 mmol/L (3.5-5.5)
--- NOTE | 2020-10-09 10:56 | P.DS ---
Providers Date of admission: 10/08/2020 Expected date of discharge: 10/09/20 Attending physician: Hermann Quan DO Consults: 10/08/20 11:33 Consult Physician Routine Consulting Provider: Rosie Palmer Consult Reason/Comments: Medical management Do you want consulting provider notified?: Yes Primary care physician: [facility] Course: Date of admission: 10/08/2020 Date of discharge: 10/09/2020 Admission diagnosis: C5-C6, C6-C7 HNP with radiculopathy Discharge diagnosis: Same Attending physician: Dr. Quan Surgical procedures: C5 to C6 and C6 to C7 total disc replacement Brief history: Patient is a 34-year-old female with a history of bilateral upper extremity radiculopathy and her extremity weakness. At this point patient has failed conservative treatment measures and has opted to proceed with a elective C5 to C6 and C6 to C7 total disc replacement. Hospital course: Details of patient's surgery can be found in operative report. Patient tolerated the procedure well and was subsequently transported to orthopedic floor. Patient's orthopeidc and medical care was provided daily. Patient had daily laboratory tests performed for evaluation of overall blood counts. Patient had daily physical therapy to include strengthening range of motion as well as education with walker ambulation. Patient was noted to have a relatively uneventful postoperative course. Patient reported satisfactory pain control with oral pain medications by postoperative day 1. Patient showed satisfactory progress with physical therapy. Patient moved steadily through the program and had no difficulty meeting the goals by postoperative day 1. Given patient's otherwise satisfactory course and having met physical therapy goals, p sherrie is to discharge patient home on postoperative day 1. Discharge condition/disposition: Patient will be discharged home in stable condition. Discharge medications: Instructions are given on resumption of patient's normal daily medications per primary care recommendation, in addition patient will be prescribed senna 8.650 mg; aspirin 325 mg; Flexeril 10 mg;. Spine Discharge and Recovery Instructions Date of Surgery: 10/08/2020 Dressing: Leave your dressing in place for a total of 5 days post operatively. Then you may remove your dressing and leave open to air. Keep the area clean and if not able to keep area clean, then cover with sterile gauze and tape. Showering: You may shower 3 days after your procedure allowing soap and water to run over incision. Do not scrub. Do not soak. Blot dry. Follow up: Please confirm a follow up appointment with your surgeon 3 weeks post operatively. Please make an appointment to follow up with your PCP in 1-2 weeks after surgery for evaluation 3 phase, 3-week plan POST OP WEEKS 1-3 1. Lifting/carrying/pushing/pulling limited to less than 5 pounds. 2. Do not sit for longer than 15 minutes at one time. Get up and walk around. Prolonged sitting is NOT advised. If you lay down, see if you can tolerate laying down on you front (belly side) 3. Walk for periods of 15 minutes = 1 mile but no longer; do it multiple times times each day. 4. Ice your low back after activity. POST OP WEEKS 3-6 1. Lifting limited to less than 20 pounds. 2. Do not sit for longer than 30 minutes at a time. Frequently change positions. Use a sit-to stand workstation or take frequent breaks from sitting if you have returned to work. 3. Walk for 30 minutes each day. If possible, do these three or more times a day POST OP WEEKS 6+ At your 6-week appointment we will give you a physical therapy referral to focus on a core stabilization and strengthening program. You should also work on leg & buttock strengthening, hamstring & quadriceps stretching, and continue a low impact aerobic activity program such as swimming, walking, or riding a stationary bicycle. During the initial 6 weeks after your surgery, you are at the highest risk of re-injuring your spine. You should generally avoid BLTs (bending, lifting and twisting combination motions) and follow the above guidelines to reduce the chance of reinjury. You can anticipate post op appointments in our office at approximately 3 weeks and 6 weeks after your surgery. INCISION CARE: If your incision is not draining you do NOT need to cover it with a dressing. Keep your incision clean, dry and intact. In most cases, we apply skin glue, mary or sutures to the incision at the time of surgery. This will be like a crust or have the appearance of a scab and will fall off in time on its own. The stitches or mary need to be removed at 3 weeks post op appointment. You may begin to shower 3 days after surgery (this allows the glue to barajas well). However, please avoid scrubbing the incision site or peeling off any of the skin glue. This will ensure optimal healing of your incision. Also, during this time avoid soaking the incision area in water - this includes swimming pools, hot tubs or baths. No ointments, lotions or oils on the incision until your surgeon allows. Leave mary, sutures or glue in place. Neurological dysfunction that comes on suddenly can also be a sign of a stroke. Below some common symptoms of a stroke are listed: B - balance difficulty such as sudden onset walking or leaning to one side - NEW E - eye problem such as sudden double vision or trouble seeing on one side - NEW F - Facial weakness or numbness on one side - NEW A - Arm or leg weakness or numbness on one side - NEW S - Slurred speech or difficulty with word finding - NEW T - Time is BRAIN! Call 911 as soon as you recognize these symptoms Diet: Consume a regular diet rich in vegetables and lean protein such as chicken or fish. You should consume in a ratio of approximately 20% fats|40% carbohydrates|40%protein. Vegetables, sweet potatoes, brown rice or quinoa are examples of good carbohydrates. Chips, white bread, cookies and sweets/sugar are examples of bad carbohydrates. Limit your bad carbs, go wild with good carbs. "Life's Simple 7" Guidelines as per [place] [employer] These will help you reclaim your life after surgery and gas main fitter helper in your recovery, keeping in mind your restrictions. (1) Get Active. Physical activity can help people lose weight, control high blood pressure and cholesterol, feel emotionally better, and sleep better. (2) Control Cholesterol. Avoid a diet high in saturated fat, trans fat, & cholesterol. Limit whole milk & cream, ice cream, butter, egg yolks, processed meats (like sausage and hot dogs), and fatty meats. Choose healthy foods that are low in saturated fat, trans fat and cholesterol which include: Fruits and vegetables, fiber rich grain products (like whole grain pasta and brown rice), lean meat such as chicken, fish, nuts, seeds, and legumes. (3) Eat Better. Eat small portions. Shop at the grocery with a list and do not stray from it. Tips for a healthy diet include: Limit sodium intake to less than 1500mg daily, avoid prepackaged, processed, and fast foods, choose a diet rich in fruits, vegetables, and whole grain, high fiber foods, and limit saturated & cholesterol in your diet. (4) Manage Blood Pressure. If you have high blood pressure, you should have a cuff at home so that you can check your blood pressure regularly. Be sure you h ave a good cuff. An arm one is generally better than a wrist one. Bring the cuff to a doctor's appointment to validate that the measurements that your cuff are taking are accurate. Take your blood pressure twice daily when you are sitting down and relaxing. Record the numbers in a log and bring this log with you to your doctors' appointments. (5) Lose Weight if your BMI is above 25. A healthy BMI is between 19-25. To calculate Your BMI, you may use a Standard BMI Calculator on the NIH BMI website: <www.nhlbi.nih.gov/guidelines/obesity/BMI/bmicalc.htm>. Weigh oneself daily. If you are overweight, set a goal to lose weight. A pound a week loss if needed is a good target. (6) Reduce Blood Sugar. Limit foods and liquids with "added sugars." (Added sugars include sucrose, fructose, glucose, maltose, dextrose, high fructose corn syrup, corn syrup, concentrated fruit juice and honey). (7) Stop Smoking. If you smoke, quitting smoking is one of the best things that you can do for your health. Smoking increases your risk of heart attack, stroke, and peripheral vascular disease, which is a build-up of plaque in your arteries. Please discard all the cigarettes and lighters in your house. Have a plan for what you will do when you have the urge to smoke. Direct and second- hand smoke shortens your life as well as the lives of your family, friends and others around you. For your health and the health of those around you, please consider quitting! Proper Bending Body Mechanics: Maintain a wide stance with one foot slightly in front of the other. Keep your back straight. Bend utilizing the strength in your hips and knees. Do not bend at the waist. Maintain the lifted object at your waist-level close to your body. Avoid lifting weight that causes immediately pain or pain anywhere in the body afterwards. Smoking/Nicotine If there was ever one thing that you could do to increase your overall health, decrease your risk of cardiovascular problems by about 39% the second you make the choice, it is to STOP SMOKING. Your body's most instant gratification is the second you stop smoking. We have all heard the studies, read the articles but it is true, smoking is extremely bad for your overall health, and moreover it is detrimental to your bone health. Nicotine, IN ANY FORM, kills bone cells, prevents your body from healing fractures, and significantly prolongs healing after surgery. In spine surgery specifically, it increases your risk of not healing your bones to create a fusion and increases your risk of having a revision surgery due to this up to 60%. I know it is hard. I know it feels impossible. But there are ways. Take control of your life. We are here to help you through it. And when you are ready, ask us and we can direct you to help if you desire. Use the START Plan to Quit Smoking (please visit the Helpguide.org website listed below for more information): S = Set a quit date. Choose a date within the next 2 weeks, so you have enough time to prepare without losing your motivation to quit. If you mainly smoke at work, quit on the weekend, so you have a few days to adjust to the change. T = Tell family, friends, and co-workers that you plan to quit. Let your friends and family in on your plan to quit smoking and tell them you need their support and encouragement to stop. Look for a quit greg who wants to stop smoking as well. You can help each other get through the rough times. A = Anticipate and plan for the challenges you'll face while quitting. Most people who begin smoking again do so within the first 3 months. You can help yourself make it through by preparing ahead for common challenges, such as nicotine withdrawal and cigarette cravings. R = Remove cigarettes and other tobacco products from your home, car, and work. Throw away all your cigarettes (no emergency pack!), lighters, ashtrays, and ma tches. Wash your clothes and freshen up anything that smells like smoke. Shampoo your car, clean your drapes and carpet, and steam your furniture. T = Talk to your doctor about getting help to quit. Your doctor can prescribe medication to help with withdrawal and suggest other alternatives. If you can't see a doctor, you can get many products over the counter at your local pharmacy or grocery store, including the nicotine patch, nicotine lozenges, and nicotine gum. Resources for Quitting Smoking: <https://www.[place].gov/documents/[facility]/Quit_Tobacco_Resources_for_patients_313 480_7.pdf> Supplementation: Take recommended dosages of Vitamin D and Calcium to help fortify your bones and help them to heal. See your health maintenance packet for dosages and recommended levels. DVT/VTE prophylaxis: You will be given compression stockings from the hospital. Wear these daily for the first two weeks after surgery. You may take them off at night. You may be prescribed a medication to help thin your blood. Take this as directed. If you are not prescribed this medication, early and frequent ambulation has been shown to be the best prophylaxis to deep vein thrombosis and sequelae related to this event. Assessment: 1. C5-6 HNP with radiculopathy 2. C6-7 large HNP with severe radiculopathy Procedures: C5 to C6 and C6 to C7 total disc replacement Patient Condition at Discharge: Good Plan - Discharge Summary Discharge Rx Participant: Yes New Discharge Prescriptions: New Aspirin 325 mg PO DAILY 14 Days #20 tab Sennosides/Docusate Sodium [Senna Plus 8.6-50 mg Softgel] 1 each PO BID #20 capsule Cyclobenzaprine [Flexeril] 10 mg PO TID PRN #40 tab PRN Reason: Spasms Continue Sertraline HCl [Zoloft] 200 mg PO HS clonazePAM [KlonoPIN] 1 mg PO BID buPROPion XL [Wellbutrin XL] 300 mg PO DAILY Budesonide-Formot 160-4.5 Mcg [Symbicort 160-4.5 Mcg Inhaler] 2 puff INHALATION BID Diltiazem HCl [Diltiazem 24Hr ER (CD)] 180 mg PO HS Loperamide HCl [Imodium A-D] 4 mg PO BID PRN PRN Reason: Diarrhea Levothyroxine Sodium 150 mcg PO HS Lansoprazole [Prevacid] 15 mg PO DAILY Hope 3 (Dose Unknown) 1 tab PO DAILY Cholecalciferol (Vitamin D3) [Vitamin D3 (5000 Iu)] 125 mcg PO DAILY Discontinued Aspirin EC [Ecotrin Low Dose] 81 mg PO DAILY No Action Cyclobenzaprine [Flexeril] 10 mg PO BID PRN PRN Reason: Pain Discharge Medication List Sertraline HCl [Zoloft] 200 mg PO HS 05/10/14 [History] clonazePAM [KlonoPIN] 1 mg PO BID 05/10/14 [History] Budesonide-Formot 160-4.5 Mcg [Symbicort 160-4.5 Mcg Inhaler] 2 puff INHALATION BID 09/19/18 [History] Diltiazem HCl [Diltiazem 24Hr ER (CD)] 180 mg PO HS 09/19/18 [History] buPROPion XL [Wellbutrin XL] 300 mg PO DAILY 09/19/18 [History] Loperamide HCl [Imodium A-D] 4 mg PO BID PRN 03/14/19 [History] Levothyroxine Sodium 150 mcg PO HS 08/16/19 [History] Cyclobenzaprine [Flexeril] 10 mg PO BID PRN 08/29/20 [History] Lansoprazole [Prevacid] 15 mg PO DAILY 08/29/20 [History] Cholecalciferol (Vitamin D3) [Vitamin D3 (5000 Iu)] 125 mcg PO DAILY 10/02/20 [History] Hope 3 (Dose Unknown) 1 tab PO DAILY 10/02/20 [History] Aspirin 325 mg PO DAILY 14 Days #20 tab 10/09/20 [Rx] Cyclobenzaprine [Flexeril] 10 mg PO TID PRN #40 tab 10/09/20 [Rx] Sennosides/Docusate Sodium [Senna Plus 8.6-50 mg Softgel] 1 each PO BID #20 capsule 10/09/20 [Rx] Follow up Appointment(s)/Referral(s): Nicholas Stoddard MD [Primary Care Provider] - 3 Days Hermann Quan DO [Doctor of Osteopathic Medicine] - 2 Weeks Activity/Diet/Wound Care/Special Instructions: Spine Discharge and Recovery Instructions Date of Surgery: 10/08/2020 Diagnosis: C5-C6, C6-C7 HNP with radiculopathy Procedure: C5 to C6 and C6 to C7 discectomy Medications: See medication list All medication refills should be obtained through your primary care doctor or your clinic spine surgeon. Please discuss prescription refills at your follow up appointment. Do not call the hospital for medication refills. Dressing: Leave your dressing in place for a total of 5 days post operatively. Then you may remove your dressing and leave open to air. Keep the area clean and if not able to keep area clean, then cover with sterile gauze and tape. Showering: You may shower 3 days after your procedure allowing soap and water to run over incision. Do not scrub. Do not soak. Blot dry. Follow up: Please confirm a follow up appointment with your surgeon 3 weeks post operatively. Please make an appointment to follow up with your PCP in 1-2 weeks after surgery for evaluation 3 phase, 3-week plan POST OP WEEKS 1-3 1. Lifting/carrying/pushing/pulling limited to less than 5 pounds. 2. Do not sit for longer than 15 minutes at one time. Get up and walk around. Prolonged sitting is NOT advised. If you lay down, see if you can tolerate laying down on you front (belly side) 3. Walk for periods of 15 minutes = 1 mile but no longer; do it multiple times times each day. 4. Ice your low back after activity. POST OP WEEKS 3-6 1. Lifting limited to less than 20 pounds. 2. Do not sit for longer than 30 minutes at a time. Frequently change positions. Use a sit-to stand workstation or take frequent breaks from sitting if you have returned to work. 3. Walk for 30 minutes each day. If possible, do these three or more times a day POST OP WEEKS 6+ At your 6-week appointment we will give you a physical therapy referral to focus on a core stabilization and strengthening program. You should also work on leg & buttock strengthening, hamstring & quadriceps stretching, and continue a low impact aerobic activity program such as swimming, walking, or riding a stationary bicycle. During the initial 6 weeks after your surgery, you are at the highest risk of re-injuring your spine. You should generally avoid BLTs (bending, lifting and twisting combination motions) and follow the above guidelines to reduce the chance of reinjury. You can anticipate post op appointments in our office at approximately 3 weeks and 6 weeks after your surgery. INCISION CARE: If your incision is not draining you do NOT need to cover it with a dressing. Keep your incision clean, dry and intact. In most cases, we apply skin glue, mary or sutures to the incision at the time of surgery. This will be like a crust or have the appearance of a scab and will fall off in time on its own. The stitches or mary need to be removed at 3 weeks post op appointment. You may begin to shower 3 days after surgery (this allows the glue to barajas well). However, please avoid scrubbing the incision site or peeling off any of the skin glue. This will ensure optimal healing of your incision. Also, during this time avoid soaking the incision area in water - this includes swimming pools, hot tubs or baths. No ointments, lotions or oils on the incision until your surgeon allows. Leave mary, sutures or glue in place. Neurological dysfunction that comes on suddenly can also be a sign of a stroke. Below some common symptoms of a stroke are listed: B - balance difficulty such as sudden onset walking or leaning to one side - NEW E - eye problem such as sudden double vision or trouble seeing on one side - NEW F - Facial weakness or numbness on one side - NEW A - Arm or leg weakness or numbness on one side - NEW S - Slurred speech or difficulty with word finding - NEW T - Time is BRAIN! Call 911 as soon as you recognize these symptoms Diet: Consume a regular diet rich in vegetables and lean protein such as chicken or fish. You should consume in a ratio of approximately 20% fats|40% carbohydrates|40%protein. Vegetables, sweet potatoes, brown rice or quinoa are examples of good carbohydrates. Chips, white bread, cookies and sweets/sugar are examples of bad carbohydrates. Limit your bad carbs, go wild with good ca rbs. "Life's Simple 7" Guidelines as per [place] [employer] These will help you reclaim your life after surgery and gas main fitter helper in your recovery, keeping in mind your restrictions. (1) Get Active. Physical activity can help people lose weight, control high blood pressure and cholesterol, feel emotionally better, and sleep better. (2) Control Cholesterol. Avoid a diet high in saturated fat, trans fat, & cholesterol. Limit whole milk & cream, ice cream, butter, egg yolks, processed meats (like sausage and hot dogs), and fatty meats. Choose healthy foods that are low in saturated fat, trans fat and cholesterol which include: Fruits and vegetables, fiber rich grain products (like whole grain pasta and brown rice), lean meat such as chicken, fish, nuts, seeds, and legumes. (3) Eat Better. Eat small portions. Shop at the grocery with a list and do not stray from it. Tips for a healthy diet include: Limit sodium intake to less than 1500mg daily, avoid prepackaged, processed, and fast foods, choose a diet rich in fruits, vegetables, and whole grain, high fiber foods, and limit saturated & cholesterol in your diet. (4) Manage Blood Pressure. If you have high blood pressure, you should have a cuff at home so that you can check your blood pressure regularly. Be sure you have a good cuff. An arm one is generally better than a wrist one. Bring the cuff to a doctor's appointment to validate that the measurements that your cuff are taking are accurate. Take your blood pressure twice daily when you are sitting down and relaxing. Record the numbers in a log and bring this log with you to your doctors' appointments. (5) Lose Weight if your BMI is above 25. A healthy BMI is between 19-25. To calculate Your BMI, you may use a Standard BMI Calculator on the NIH BMI website: <www.nhlbi.nih.gov/guidelines/obesity/BMI/bmicalc.htm>. Weigh oneself daily. If you are overweight, set a goal to lose weight. A pound a week loss if needed is a good target. (6) Reduce Blood Sugar. Limit foods and liquids with "added sugars." (Added sugars include sucrose, fructose, glucose, maltose, dextrose, high fructose corn syrup, corn syrup, concentrated fruit juice and honey). (7) Stop Smoking. If you smoke, quitting smoking is one of the best things that you can do for your health. Smoking increases your risk of heart attack, stroke, and peripheral vascular disease, which is a build-up of plaque in your arteries. Please discard all the cigarettes and lighters in your house. Have a plan for what you will do when you have the urge to smoke. Direct and second- hand smoke shortens your life as well as the lives of your family, friends and others around you. For your health and the health of those around you, please consider quitting! Proper Bending Body Mechanics: Maintain a wide stance with one foot slightly in front of the other. Keep your back straight. Bend utilizing the strength in your hips and knees. Do not bend at the waist. Maintain the lifted object at your waist-level close to your body. Avoid lifting weight that causes immediately pain or pain anywhere in the body afterwards. Smoking/Nicotine If there was ever one thing that you could do to increase your overall health, decrease your risk of cardiovascular problems by about 39% the second you make the choice, it is to STOP SMOKING. Your body's most instant gratification is the second you stop smoking. We have all heard the studies, read the articles but it is true, smoking is extremely bad for your overall health, and moreover it is detrimental to your bone health. Nicotine, IN ANY FORM, kills bone cells, prevents your body from healing fractures, and significantly prolongs healing after surgery. In spine surgery specifically, it increases your risk of not healing your bones to create a fusion and increases your risk of having a revision surgery due to this up to 60%. I know it is hard. I know it feels impossible. But there are ways. Take control of your life. We are here to help you through it. And when you are ready, ask us and we can direct you to help if you desire. Use the START Plan to Quit Smoking (please visit the Helpguide.org website listed below for more information): S = Set a quit date. Choose a date within the next 2 weeks, so you have enough time to prepare without losing your motivation to quit. If you mainly smoke at work, quit on the weekend, so you have a few days to adjust to the change. T = Tell family, friends, and co-workers that you plan to quit. Let your friends and family in on your plan to quit smoking and tell them you need their support and encouragement to stop. Look for a quit greg who wants to stop smoking as well. You can help each other get through the rough times. A = Anticipate and plan for the challenges you'll face while quitting. Most people who begin smoking again do so within the first 3 months. You can help yourself make it through by preparing ahead for common challenges, such as nicotine withdrawal and cigarette cravings. R = Remove cigarettes and other tobacco products from your home, car, and work. Throw away all your cigarettes (no emergency pack!), lighters, ashtrays, and matches. Wash your clothes and freshen up anything that smells like smoke. Shampoo your car, clean your drapes and carpet, and steam your furniture. T = Talk to your doctor about getting help to quit. Your doctor can prescribe medication to help with withdrawal and suggest other alternatives. If you can't see a doctor, you can get many products over the counter at your local pharmacy or grocery store, including the nicotine patch, nicotine lozenges, and nicotine gum. Resources for Quitting Smoking: <https://www.[place].gov/documents/[facility]/Quit_Tobacco_Resources_for_patients_313 480_7.pdf> Supplementation: Take recommended dosages of Vitamin D and Calcium to help fortify your bones and help them to heal. See your health maintenance packet for dosages and recommended levels. DVT/VTE prophylaxis: You will be given compression stockings from the hospital. Wear these daily for the first two weeks after surgery. You may take them off at night. You may be prescribed a medication to help thin your blood. Take this as directed. If you are not prescribed this medication, early and frequent ambulation has been shown to be the best prophylaxis to deep vein thrombosis and sequelae related to this event. Discharge Disposition: HOME SELF-CARE
[2020-10-09 11:24] VITALS: BP 126/78; PULSE 79; RESP 18
[2020-10-09] MEDS: 0.9% NACL WITH KCL 20 MEQ/L 1,000 ML IV SCH (13:02)
[2020-10-09 16:13] VITALS: TEMP 98.2
== END 2020-10-09 16:50 | disposition home or self-care (01) ==
LOC: OR 06:06 → 5NMEDONC 11:16 → OR 10-09 06:46
PROVIDERS: ADMIT Orthopaedic Surgery; ATTEND Orthopaedic Surgery
DX: M50.122 Cervical disc disorder at C5-C6 level with radiculopathy (principal); M50.222 Other cervical disc displacement at C5-C6 level; K21.9 Gastro-esophageal reflux disease without esophagitis; J45.909 Unspecified asthma, uncomplicated; I48.0 Paroxysmal atrial fibrillation; E03.9 Hypothyroidism, unspecified; I25.10 Atherosclerotic heart disease of native coronary artery without angina pectoris; D64.9 Anemia, unspecified; M48.02 Spinal stenosis, cervical region; Z79.51 Long term (current) use of inhaled steroids; Z79.899 Other long term (current) drug therapy; Z79.82 Long term (current) use of aspirin; Z88.2 Allergy status to sulfonamides; Z91.030 Bee allergy status; Z88.1 Allergy status to other antibiotic agents; Z88.5 Allergy status to narcotic agent; Z88.0 Allergy status to penicillin; Z88.8 Allergy status to other drugs, medicaments and biological substances; F41.9 Anxiety disorder, unspecified; Z90.49 Acquired absence of other specified parts of digestive tract; Z20.822 Contact with and (suspected) exposure to COVID-19; Z98.51 Tubal ligation status; Z98.891 History of uterine scar from previous surgery; Z98.890 Other specified postprocedural states; Z87.440 Personal history of urinary (tract) infections; Z87.891 Personal history of nicotine dependence; Z87.39 Personal history of other diseases of the musculoskeletal system and connective tissue; Z86.73 Personal history of transient ischemic attack (TIA), and cerebral infarction without residual deficits; Z87.11 Personal history of peptic ulcer disease; Z82.49 Family history of ischemic heart disease and other diseases of the circulatory system
CPT/HCPCS: 22856; 22858; 63045; 94640 ×2; 80048; 85025; 87635; 72040 ×2; G0378; L0120; C1713; C1762; J2250; J3370 ×2; J1100 ×2; J2405; J2001; J3010; J1885 ×2; J0330; J2704; J1170; 86850; 86900; 86901

== ENCOUNTER 2020-10-10 12:58 | Emergency (ER) | payer OTHER ==
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
[2020-10-10 13:49] VITALS: BP 146/80; PULSE 84; RESP 18; TEMP 98
== END 2020-10-10 13:48 | disposition home or self-care (01) ==
LOC: EC 12:58
DX: R23.8 Other skin changes (principal); J45.909 Unspecified asthma, uncomplicated; K21.9 Gastro-esophageal reflux disease without esophagitis; E07.9 Disorder of thyroid, unspecified; F41.9 Anxiety disorder, unspecified; F32.9 Major depressive disorder, single episode, unspecified; Z79.899 Other long term (current) drug therapy; Z79.890 Hormone replacement therapy; Z88.1 Allergy status to other antibiotic agents; Z88.2 Allergy status to sulfonamides; Z91.030 Bee allergy status; Z88.5 Allergy status to narcotic agent; Z88.0 Allergy status to penicillin; Z88.8 Allergy status to other drugs, medicaments and biological substances; Z86.73 Personal history of transient ischemic attack (TIA), and cerebral infarction without residual deficits; Z87.891 Personal history of nicotine dependence
CPT/HCPCS: 99283

== ENCOUNTER → 2022-10-05 | Outpatient (CLI) | payer OTHER ==
--- NOTE | 2022-10-06 09:31 | MM ---
Reason for Exam: Screening (asymptomatic). Patient History: Menarche at age 10. First Full-Term at age 21. Premenopausal. Patient used Hormonal Contraceptives for 1 year. Maternal grandmother had breast cancer, age 75. Paternal aunt had breast cancer, age 45. Sister had breast cancer, age 34. Risk Values: Eboni 5 year model risk: 0.9%. NCI Lifetime model risk: 18.5%. Tissue Density: The breast tissue is heterogeneously dense. This may lower the sensitivity of mammography. Findings: Analyzed By CAD. There is no suspicious group of microcalcifications in either breast. No suspicious mass within the left breast. There is a well-circumscribed oval mass within the upper outer quadrant of the right breast posteriorly measuring up to 7 mm. This may represent a lymph node. Overall Assessment: Incomplete: need additional imaging evaluation, BI-RAD 0 Management: Diagnostic Breast Ultrasound of the right breast. A clinical breast exam by your physician is recommended on an annual basis and results should be correlated with mammographic findings. [facility] will attempt to contact patient to return for supplemental views and ultrasound if indicated. Electronically signed and approved by: Jose Acosta D.O.
== END | disposition home or self-care (01) ==
LOC: RADMAMWWP 16:03
PROVIDERS: ATTEND Family Medicine
DX: Z12.31 Encounter for screening mammogram for malignant neoplasm of breast (principal); Z80.3 Family history of malignant neoplasm of breast
CPT/HCPCS: 77063; 77067

== ENCOUNTER → 2022-10-07 | Outpatient (CLI) | payer OTHER ==
--- NOTE | 2022-10-07 10:56 | USB ---
Reason for Exam: Additional evaluation requested from abnormal screening. Patient History: Menarche at age 10. First Full-Term at age 21. Premenopausal. Patient used Hormonal Contraceptives for 1 year. Maternal grandmother had breast cancer, age 75. Paternal aunt had breast cancer, age 45. Sister had breast cancer, age 34. Risk Values: Eboni 5 year model risk: 0.9%. NCI Lifetime model risk: 18.5%. Technique: Method: Targeted. Prior Study Comparison: 10/05/2022 Bilateral MG screening mammo w CAD, [facility]. Findings: The upper outer quadrant of the right breast, the axilla of the right breast and the retroareolar of the right breast were scanned. Targeted ultrasound right breast shows a slightly prominent for benign-appearing 11 x 8 mm lymph node at 11:00 position 12 cm distance from nipple. Remainder study shows no worrisome solid or cystic mass or fluid collection. Overall Assessment: Benign, BI-RAD 2 Management: Screening Mammogram of both breasts at age 38. A clinical breast exam by your physician is recommended on an annual basis and results should be correlated with mammographic findings. This exam should not preclude additional follow-up of suspicious palpable abnormalities. Results were given to the patient verbally at the time of exam. Electronically signed and approved by: Juan Pineda M.D.
== END | disposition home or self-care (01) ==
LOC: RADUSWWP 10:04
PROVIDERS: ATTEND Family Medicine
DX: R92.8 Other abnormal and inconclusive findings on diagnostic imaging of breast (principal); Z80.3 Family history of malignant neoplasm of breast

== ENCOUNTER → 2023-09-22 | Outpatient (CLI) | payer OTHER ==
--- NOTE | 2023-09-23 14:52 | MR ---
EXAMINATION TYPE: MR lumbar spine wo con DATE OF EXAM: 09/22/2023 1:50 PM CLINICAL INDICATION:Female, 37 years old with history of M54.50 LOW BACK PAIN; PHH, Low back pain an d numbness in legs x4 months COMPARISON: None TECHNIQUE: Multi planar, multi sequence imaging was performed utilizing: T1-weighted, T2-weighted, a nd turbo inversion recovery imaging of the lumbar spine. IV Contrast: cc . (None if empty) FINDINGS: Alignment: The lumbar vertebral bodies have preserved heights and alignment. Cord: The conus medullaris and the distal spinal cord appear unremarkable with regards to their signa l intensity and morphology. Bones/Discs: Mild degeneration changes throughout the spine with osteophyte formation and facet joint arthropathy. Intervertebral disc signal is maintained. T12-L1: No evidence of significant spinal canal stenosis or neural foraminal stenosis. L1-L2: No evidence of significant spinal canal stenosis or neural foraminal stenosis. L2-L3: No evidence of significant spinal canal stenosis or neural foraminal stenosis. L3-L4: No evidence of significant spinal canal stenosis or neural foraminal stenosis. L4-L5: Disc bulge and facet joint arthropathy result in mild to moderate spinal canal and mild bilate ral neural foraminal stenosis. L5-S1: The disc is rounded posterior morphology without significant spinal canal stenosis. Facet join t arthropathy with mild bilateral neural foraminal stenosis. No significant spinal canal or neural foraminal stenosis in the remainder of the visualized levels. Other findings: None. IMPRESSION: 1. No definitive evidence of disc herniation or significant spinal canal stenosis. 2. Mild disc degeneration with associated osteoarthritic changes. No foraminal stenosis worse at L4- L5 with to moderate bilateral.
== END | disposition home or self-care (01) ==
LOC: RADMRIMAIN 12:58
PROVIDERS: ATTEND Orthopaedic Surgery
DX: M51.36 Other intervertebral disc degeneration, lumbar region (principal); M47.816 Spondylosis without myelopathy or radiculopathy, lumbar region
CPT/HCPCS: 72148

== ENCOUNTER → 2023-09-25 | Outpatient (CLI) | payer OTHER ==
[2023-09-25 13:39] LABS: HCT 38.9 % (37.2-46.3); HGB 12.8 g/dL (12.0-15.0); MCH 30.3 pg (27.0-32.0); MCHC 32.9 g/dL (32.0-37.0); MCV 92.2 FL (80.0-97.0); Mean Platelet Volume 11.6 FL (9.5-12.2); NRBC Per 100 WBC 0 X 10*3/uL (0.00-0.01); Platelet Count 244 X 10*3/uL (140-440); RBC 4.22 X 10*6/uL (4.10-5.20); RDW 12.5 % (11.5-14.5); WBC 6.06 X 10*3/uL (4.50-10.00)
[2023-09-25 14:13] LABS: ALT 29 U/L (8-44); AST 26 U/L (13-35); Albumin 4.6 g/dL (3.8-4.9); Albumin/Globulin Ratio 1.77 Ratio (1.60-3.17); Alkaline Phosphatase 75 U/L (41-126); BUN/Creat Ratio 15.38 Ratio (12.00-20.00); Blood Urea Nitrogen 12.3 mg/dL (9.0-27.0); Calcium 9.7 mg/dL (8.7-10.3); Carbon Dioxide 22.4 mmol/L (21.6-31.8); Chloride 106 mmol/L (96-109); Chol/HDL Ratio 2.85 Ratio; Globulin 2.6 g/dL (1.6-3.3); Glucose 85 mg/dL (70-110); LDL Cholesterol,Calculated 101.6 mg/dL (0.0-131.0); Potassium 4.8 mmol/L (3.5-5.5); Sodium 140 mmol/L (135-145); T4, Free (Free Thyroxine) 1.56 ng/dL (0.80-1.80); Total Bilirubin 0.4 mg/dL (0.3-1.2); Total Protein 7.2 g/dL (6.2-8.2); VLDL Calculation 19.82 mg/dL (5.00-40.00)
== END | disposition home or self-care (01) ==
LOC: LABWHC1 08:42
PROVIDERS: ATTEND Family Medicine
DX: Z00.01 Encounter for general adult medical examination with abnormal findings (principal); E66.3 Overweight; R53.83 Other fatigue
CPT/HCPCS: 36415; 80053; 80061; 84439; 84443; 84481; 85027

== ENCOUNTER → 2023-11-01 | Outpatient (CLI) | payer OTHER ==
[2023-11-01 17:10] LABS: INR 0.9 (<1.2); Partial Thromboplastin Time 24.4 sec (22.0-30.0); Prothrombin Time 9.9 sec (10.0-12.5)
[2023-11-01 21:41] LABS: Appearance,Urine Clear (Clear); Bilirubin,Urine Negative (Negative); Blood,Urine Trace (Negative); Color,Urine Yellow (Yellow); Ketones,Urine Negative (Negative); Nitrite,Urine Negative (Negative); PH, Urine 5.5; Specific Gravity,Urine 1.009 (1.001-1.030); Urobilinogen,Urine 0.2 E.U./DL
[2023-11-01 21:44] LABS: Bacteria,Urine Trace (None Seen)
[2023-11-01 22:29] LABS: Basophils # (A) 0.03 X 10*3/uL (0.00-0.10); Basophils % (A) 0.5 %; Eosinophils # (A) 0.03 X 10*3/uL (0.04-0.35); Eosinophils % (A) 0.5 %; HCT 35.9 % (37.2-46.3); HGB 11.9 g/dL (12.0-15.0); Lymphocytes # (A) 2.16 X 10*3/uL (0.90-5.00); Lymphocytes % (A) 38.6 %; MCH 29.8 pg (27.0-32.0); MCHC 33.1 g/dL (32.0-37.0); Mean Platelet Volume 12.4 FL (9.5-12.2); Monocytes # (A) 0.33 X 10*3/uL (0.20-1.00); Monocytes % (A) 5.9 %; NRBC Per 100 WBC 0 X 10*3/uL (0.00-0.01); Neutrophils # (A) 3.03 X 10*3/uL (1.80-7.70); Neutrophils % (A) 54.3 %; Platelet Count 244 X 10*3/uL (140-440); RBC 3.99 X 10*6/uL (4.10-5.20); WBC 5.59 X 10*3/uL (4.50-10.00)
[2023-11-01 23:06] LABS: ALT 29 U/L (8-44); AST 25 U/L (13-35); Albumin 4.4 g/dL (3.8-4.9); Albumin/Globulin Ratio 1.76 Ratio (1.60-3.17); Alkaline Phosphatase 70 U/L (41-126); Blood Urea Nitrogen 10.8 mg/dL (9.0-27.0); Carbon Dioxide 21.4 mmol/L (21.6-31.8); Chloride 106 mmol/L (96-109); Globulin 2.5 g/dL (1.6-3.3); Glucose 93 mg/dL (70-110); Potassium 4.7 mmol/L (3.5-5.5); Sodium 138 mmol/L (135-145); Total Bilirubin 0.3 mg/dL (0.3-1.2); Total Protein 6.9 g/dL (6.2-8.2)
== END | disposition home or self-care (01) ==
LOC: LABPAT 15:52
PROVIDERS: ATTEND Orthopaedic Surgery
DX: Z01.812 Encounter for preprocedural laboratory examination (principal); M51.26 Other intervertebral disc displacement, lumbar region; M47.26 Other spondylosis with radiculopathy, lumbar region; Z22.322 Carrier or suspected carrier of Methicillin resistant Staphylococcus aureus
CPT/HCPCS: 36415; 80053; 81001; 82306; 85025; 85610; 85730; 86850; 86900; 86901; 87070

== ENCOUNTER 2023-11-08 07:46 | Day surgery (SDC) | payer OTHER ==
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
[~2023-11-08 07:46] MED LIST changes: -ACETAMINOPHEN TAB 500 MG TAB PO PRN; -DEXAMETHASONE SOD PHOSPHATE 4 MG/ML 1 ML VIAL IV ONE; -DEXAMETHASONE SOD PHOSPHATE 4 MG/ML 1 ML VIAL IVP PRN; +HYDROmorphone 0.5 MG/0.5 ML SYRINGE IVP PRN; -MIDAZOLAM 2 MG/2 ML VIAL IV PRN; -ONDANSETRON 4 MG/2 ML VIAL IVP ONE; +TRANEXAMIC 1,000 MG/100ML-NACL 1,000 MG in SALINE 1 100ML.BAG IVPB PRN; -VANCOMYCIN 1,500 MG in SODIUM CHLORIDE 0.9% 250 ML IVPB PRN
[2023-11-08] MEDS: LACTATED RINGERS 1,000 ML IV SCH (08:01)
[2023-11-08 08:48] LABS: Glucose,Whole Blood 93 mg/dL (70-110)
[2023-11-08] MEDS: DEXAMETHASONE SOD PHOSPHATE 4 MG/ML 1 ML VIAL IV ONE (08:53)
[2023-11-08] MEDS: ACETAMINOPHEN TAB 500 MG TAB PO PRN (08:53)
[2023-11-08] MEDS: GABAPENTIN 300 MG CAP PO PRN (08:53)
[2023-11-08] MEDS: ONDANSETRON 4 MG/2 ML VIAL IVP ONE (08:53)
[2023-11-08] MEDS ORDERED: MIDAZOLAM 2 MG/2 ML VIAL ONE (08:59)
[2023-11-08] MEDS ORDERED: GLYCOPYRROLATE 0.2 MG/ML 2 ML VIAL ONE (08:59)
[2023-11-08] MEDS ORDERED: ePHEDrine 50 MG/ML 1 ML VIAL ONE (08:59)
[2023-11-08] MEDS ORDERED: NEOSTIGMINE 1 MG/ML 10 ML VIAL ONE (08:59)
[2023-11-08] MEDS ORDERED: LIDOCAINE 1% INJ 10MG/ML (20 ML MDV) ONE (08:59)
[2023-11-08] MEDS ORDERED: PROPOFOL 10 MG/ML 20 ML VIAL IV ONE (08:59)
[2023-11-08] MEDS ORDERED: fentaNYL (PF) 50 MCG/ML 2 ML AMP ONE (08:59)
[2023-11-08] MEDS ORDERED: PHENYLEPHRINE-0.9% NACL SYG 1,000 MCG/10 ML SYRINGE ONE (08:59)
[2023-11-08] MEDS ORDERED: ROCURONIUM 10 MG/ML (5 ML VIAL) IV ONE (08:59)
[2023-11-08] MEDS ORDERED: KETAMINE HCL IN 0.9 % NACL 50 MG/5 ML SYRINGE ONE (08:59)
[2023-11-08] MEDS ORDERED: TRANEXAMIC 1,000 MG/100ML-NACL PREMIX BAG ONE (08:59)
[2023-11-08] MEDS ORDERED: SUCCINYLCHOLINE CHLORIDE 200 MG/10 ML VIAL IV ONE (08:59)
[2023-11-08] MEDS: LACTATED RINGERS 1,000 ML IV ONE (09:00)
[2023-11-08] MEDS: BUPIVACAINE (PF) 0.5% 30 ML VIAL SQ ONE (09:46)
[2023-11-08] MEDS: THROMBIN (BOVINE) 5,000 UNIT VIAL MISCELLANE ONE (09:47)
[2023-11-08] MEDS: LIDOCAINE 2%-EPI 1:100,000 20 ML VIAL SQ ONE (09:47)
--- NOTE | 2023-11-08 10:44 | P.OP ---
Date of Procedure: 11/08/23 Preoperative Diagnosis: 1. 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 RLE RADICULOPATHY 3. LOW BACK PAIN 4. LE PARESTHESIAS Postoperative Diagnosis: 1. 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 RLE RADICULOPATHY 3. LOW BACK PAIN 4. LE PARESTHESIAS Procedure(s) Performed: 1. L4-5 MIS RIGHT LAMINOFORAMINOTOMY WITH MICRODISCECTOMY Implants: NONE Anesthesia: GETA Surgeon: Hermann Quan Wet Pour Supervisor #1: Brooks Magana (MARCIAL Scott Was present and assisted with all aspects of the case from positioning to dressing placement) Estimated Blood Loss (ml): 25 IV fluids (ml): 1,000 Urine output (ml): 0 Pathology: none sent Condition: stable Disposition: PACU Indications for Procedure: Ms. Hall is presenting for evaluation of low back and bilateral lower ex tremity pain, bilateral lower extremity numbness and tingling, bladder retention. It was my pleasure to have seen and examined Ms. Hall. In our visit today we have had a chance to go over subjective complaints, physical examination findings and treatments including the natural course history without intervention and various interventional options. The patients imaging demonstrates: MRI of lumbar spine completed at [facility] on 09/22/2023: RIGHT PARACENTRAL L4-5 HNP WITH FORAMINAL AND CENTRAL STENOSIS MODERATE TO SEVERE WITH NERVE ROOT TENTING AND THECAL SAC ENCROACHMENT. XRay Lumbar Multiview (AP, Lateral, Flexion, Extension) with AP pelvis; 5 views taken at [facility] on 07/14/23 of Lumbar Spine: Apparent facet fractures at L3-4 and L4-5 on the right side. There is possible extension into the pars on this side at those levels. There is trace listhesis on F/E films and there is angular change at L3-4 and L4-5 with Flexion that is concerning. Discs are starting to wear asymmetrically likely due to these changes and load changes due to the facets being insufficient. No other fractures noted at this time. No lesions. AP pelvis: shows congruent level pelvis no fracture. On physical exam, Ms. Hall demonstrates: A continued and progressive ache- like pain throughout the low back that radiates down into the bilateral lower extremities. She notes her leg pain is associated with intermittent numbness and tingling bilaterally, worse on the right compared to the left. She notes severe pain, numbness, and tingling throughout the right great tow that has progressively worsened since her last office visit. She states her current symptoms worsen after all activity, which makes it very difficult for her to complete any of her regular activities of daily living. She notes issues with urinary retention over the last 3 to 4 weeks. She notes no loss of sensation around the genital region. I have explained to the patient that as their condition progresses it will cause further neurological deficits and eventual paralysis. Based on the patients imaging, physical exam, and the rapid progression and disabling nature of their symptoms, at this time I recommend surgery in the form of a: Right-sided minimally invasive L4-5 laminoforaminotomy. I discussed the risk and benefits of this procedure at length with Ms. Hall. The patient agreed to considered pursuing the procedure above mentioned. Prior to surgery, she should follow up with her PCP (Cardio, ID, IM etc) for clearance. Questions were invited and answered, and the patient wishes to proceed as outlined below. Currently, I am recommendin.Right-sided minimally invasive L4-5 laminoforaminotomy 2.Follow up with PCP for surgical clearance Description of Procedure: L4-5 RIGHT LAMINOFORAMINOTOMY WITH MD (LOUIE) The patient was seen and examined in the preoperative area. All preoperative protocols were followed. Informed consent was obtained, risks and benefits of the procedure were discussed at length. Risks including bleeding infection damage to the surrounding tissue and risk of reoperation were discussed with the patient. Risk of anesthesia up to and including was discussed with the patient. These are outlined in the risk review. They were willing to accept these risks and all the risks of surgery. The patient was given a weight-based dose of antibiotics in the form of 2 g Ancef. The patient was seen and evaluated by the anesthesia team who deemed them fit for surgery. The site was marked, the patient was willing to proceed with the procedure. The patient was transferred to the operative suite by the Department of anesthesia. They were then drifted off to sleep by the department anesthesia and GETA was performed. The patient tolerated this well. Moraes catheter was placed by nursing staff, a-traumatically. Once confirmation of lines and ventilation the patient was transferred to a prone Van table very carefully. All bony prominences including wrists, elbows, axilla, chest, hips, and thighs, and feet were padded very well. Special attention was paid to the genitalia, and these were padded accordingly. SCDs were placed on bilateral lower extremities and were connected. Arms were well padded and placed on arm boards up and out in the 90/90 position. Once in position, again we confirmed good ventilation capabilities and that lines were running appropriately. The patients Lumbar spine was then exposed. 1010s were placed outlining the incision site. Standard alcohol was used to clean the incision site and allowed to dry. C-arm was used to needle localize the pedicles at L4-5 and bio-shonda the patient and confirm level for incision which was marked with a skin marker. Operative briefing was performed with all teams and everyone in agreement to proceed. The patient was then prepped and draped in a normal sterile fashion. Timeout was then performed, and all parties agreed with the procedure to be performed. Skin incision was made over the previously marked area. Fluoroscopy was then used to target the lamina and facet joints on the right hand side of L4-5 and initial dilator for tubular retractor system was used to identify this area. Once in a good position, sequential dilation was taken up to 26 mm and tube selected. A 90 mm tube was then placed and secured to the table. This was confirmed to be in good position on AP and Lateral imaging. Limited myomectomy was then done to identify the lamina, interlaminar space, and facet joints. Alfonzo-laminotomy, partial medial facetectomy and foraminotomy were performed at L4-5 using high speed gustavo and Kerrison rongure. The ligamentum flavum was removed with Kerrison and curette. Dura and roots protected. The disc space was identified along with the herniation. 11 blade was used to make small annulotomy and micro-pituitary used to remove loose disc fragments. Once fragments were removed, down biting curette was used to push any medial fragments down and towards the annulotomy and decompress centrally. The disc space was irrigated, and any loose fragments removed again. Bipolar was used for hemostasis and scarring of the annulotomy. The area was irrigated, and meticulous hemostasis performed. The bed was inspected, and all roots have ample room and are decompressed along with the dura. There were no injuries. Retractors were then removed. The wound was copiously irrigated with NSS. The deep fascia was closed with 0 PDS. Deep sub-q with 0 Vicryl and superficial wi th 2-0 Vicryl. Subcuticular was closed with 3-0 stratafix. The wound edges approximated well. The wound was then cleaned, and glue tape placed on the skin and allowed to dry. It was then Covered with an Opifoam dressing. The patient was then transferred off the table back to their hospital bed a- traumatically. They were extubated by the department of anesthesia. They were then transferred to PACU in stable condition having tolerated the procedure with no complications.
[2023-11-08 11:20] VITALS: TEMP 98.1
[2023-11-08] MEDS: HYDROcodone/APAP 10-325MG 1 EACH TAB ONE (11:46)
--- NOTE | 2023-11-08 11:53 | FL ---
EXAMINATION TYPE: FL guidance operating room, XR lumbar spine 2 or 3V Intraoperative/procedural fluor oscopic services were provided. Total fluoroscopy time is 22.5 seconds with a total of 4 submitted im ages to PACS. Please see the operative/procedural note for further details. DAP: 5.175 Gycm2
[2023-11-08 12:06] VITALS: BP 123/83; PULSE 79; RESP 16
== END 2023-11-08 12:50 | disposition home or self-care (01) ==
LOC: OR 07:46
PROVIDERS: ATTEND Orthopaedic Surgery
DX: M48.061 Spinal stenosis, lumbar region without neurogenic claudication (principal); M51.26 Other intervertebral disc displacement, lumbar region; J45.909 Unspecified asthma, uncomplicated; K21.9 Gastro-esophageal reflux disease without esophagitis; Z79.51 Long term (current) use of inhaled steroids; Z79.890 Hormone replacement therapy; Z86.73 Personal history of transient ischemic attack (TIA), and cerebral infarction without residual deficits; Z87.11 Personal history of peptic ulcer disease; Z87.891 Personal history of nicotine dependence; Z88.0 Allergy status to penicillin; Z88.1 Allergy status to other antibiotic agents; Z88.2 Allergy status to sulfonamides; Z91.030 Bee allergy status; Z90.49 Acquired absence of other specified parts of digestive tract
CPT/HCPCS: 81025; 72100; 63030; C1762; J2250; J0330; J1100; J2710; J0690; J2405; J2001; J3010; J2704; J2371; J0665

== ENCOUNTER → 2024-08-03 | Outpatient (CLI) | payer OTHER ==
--- NOTE | 2024-08-03 14:00 | MR ---
INDICATION: Patient age:Female; 38 years old; Reason for study: M54.50, R32, M54.16; [facility]. COMPARISONS: Lumbar spine radiograph 11/08/2023, MRI lumbar spine 09/22/2023, 06/29/2020, 05/18/2016, CT lumbar spine 05/30/2020. TECHNIQUE: Multi planar, multi sequence imaging was performed utilizing: T1-weighted, T2-weighted, a nd turbo inversion recovery imaging of the lumbar spine. The patient was not given contrast. FINDINGS: The lumbar vertebral bodies do have preserved heights and alignment. Multilevel disc kip ccation is present. Most prominent from L2 through L5. Stable small vertebral hemangioma within the L3 vertebral body. The conus medullaris and the distal spinal cord do appear unremarkable with regard s to their signal intensity and morphology. Increased size of Schmorl's nodes involving the endplates around the L4-L5 disc space. There is surrounding increased STIR signal within the endplates. L1-L2: No significant disc pathology is identified. The spinal canal and neural foramen are patent. L2-L3: No significant disc pathology is identified. The spinal canal and neural foramen are patent. L3-L4: Eccentric leftward broad based disc bulge without significant effacement of the anterior thec al sac. Bilateral facet arthropathy. No neural foraminal stenosis. L4-L5: Broad-based disc bulge is identified with associated enlargement of the facet joints. The spin al canal remains patent. Mild to moderate right neural foraminal stenosis. No left neural foraminal s tenosis. Increased size of Schmorl's nodes involving the endplates around the L4-L5 disc space. L5-S1: The intervertebral disc appears round on its contour posteriorly without significant mass eff ect upon the thecal sac. Facet joints are enlarged. Neural canals do remain patent. Other significant findings: None. IMPRESSION: 1. No definitive evidence for disc herniation or significant spinal canal stenosis. 2. Mild multilevel degenerative disc disease and moderate multilevel lower lumbar spine facet arthro anthony as described above. Mild to moderate left neural foraminal stenosis at L4-L5. 3. Increased size of Schmorl's nodes involving the endplates around the L4-L5 disc with endplate sharron a. [facility], , 08/03/2024 1:58 PM
== END | disposition home or self-care (01) ==
LOC: RADMRIMAIN 12:58
PROVIDERS: ATTEND Orthopaedic Surgery
DX: M48.061 Spinal stenosis, lumbar region without neurogenic claudication (principal); M51.16 Intervertebral disc disorders with radiculopathy, lumbar region; M47.26 Other spondylosis with radiculopathy, lumbar region; R32 Unspecified urinary incontinence; R60.9 Edema, unspecified
CPT/HCPCS: 72148

== ENCOUNTER → 2024-09-21 | Outpatient (CLI) | payer OTHER ==
--- NOTE | 2024-09-21 17:11 | CT ---
EXAMINATION TYPE: CT lumbar spine wo con DATE OF EXAM: 09/21/2024 4:36 PM COMPARISON: 05/30/2020 CLINICAL INDICATION: Female, 38 years old with history of M54.50 LOW BACK PAIN; PHH, Chronic lower ba ck pain TECHNIQUE: Unenhanced CT of the lumbar spine was performed. Bone and soft tissue window settings are submitted as well as coronal and sagittal reconstructions. CT DLP: 1368.[address] CTDI: mGy Automated exposure control for dose reduction was used. FINDINGS: L1-L2: Normal disc space height. No disc herniation protrusion or central stenosis. No facet joint arthropathy. No evidence for foraminal encroachment. L2-L3: Normal disc space height. No disc herniation protrusion or central stenosis. No facet joint arthropathy. No evidence for foraminal encroachment. L3-L4: Normal disc space height. No disc herniation protrusion or central stenosis. No facet joint arthropathy. No evidence for foraminal encroachment. L4-L5: Mild degenerative disc disease and posterior disc bulging. Right lateral recess stenosis and r ight-sided foraminal encroachment. L5-S1: Normal disc space height. No disc herniation protrusion or central stenosis. No facet joint arthropathy. No evidence for foraminal encroachment. No paraspinal masses are identified. Lumbar segments are intact. IMPRESSION: L4-5 degenerative disc disease with disc bulge and right lateral recess stenosis with right sided for aminal encroachment. [facility], , 09/21/2024 5:08 PM
== END | disposition home or self-care (01) ==
LOC: RADCTMAIN 15:55
PROVIDERS: ATTEND Orthopaedic Surgery
DX: M51.360 Other intervertebral disc degeneration, lumbar region with discogenic back pain only (principal); M48.061 Spinal stenosis, lumbar region without neurogenic claudication
CPT/HCPCS: 72131

== ENCOUNTER → 2024-11-23 | Outpatient (CLI) | payer OTHER ==
[2024-11-23 13:11] VITALS: BP 120/86; PULSE 87; RESP 16; TEMP 97.1
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
== END ==
LOC: PNWHC3 12:45
PROVIDERS: ATTEND Specialist
DX: M46.1 Sacroiliitis, not elsewhere classified (principal); Z98.890 Other specified postprocedural states; Z87.891 Personal history of nicotine dependence; Z91.030 Bee allergy status; Z88.0 Allergy status to penicillin; Z88.2 Allergy status to sulfonamides; Z88.1 Allergy status to other antibiotic agents; Z88.8 Allergy status to other drugs, medicaments and biological substances
CPT/HCPCS: 99211